=== PATIENT | male | born 1960 | race Caucasian/White ===

== ENCOUNTER 2016-09-29 10:24 | Emergency (ER) | payer MEDICARE, OTHER ==
[~2016-09-29] VITALS: Ht 185.4 cm; Wt 95.0 kg
[~2016-09-29 10:24] MED LIST: CLON1 PO; DOXE25CA2 PO; HYDR-3535 PO; PRIL40CA PO; SYMB160A INH
[2016-09-29 10:34] VITALS: BP 109/84; PULSE 125; RESP 16; TEMP 97.4; O2SAT 98
[2016-09-29] MEDS ORDERED: MICROFIBRILLAR COLLAGEN HEMOSTAT 70 X 35 MM BANDAGE TOPICAL ONE (11:15)
--- NOTE | 2016-09-29 11:16 | PD ---
HPI Chief Complaint: Oral / Dental Pain or Problem Time Seen by Provider: 10:55 Travel History International Travel<30 days: No Contact w/Intl Traveler<30days: No Traveled to known affect area: No History of Present Illness HPI 56yo M presents to the ED with c/o bleeding after he pulled out his wisdom tooth with a metal plier yesterday at 11pm. States it has not stopped bleeding. Denies any other complaints. Denies any anticoagulation. Denies any chest pain, sob, n/v, abdominal pain, weakness or numbness. PFSH Past Medical History Arthritis: Yes Asthma: Yes Anxiety: Yes Depression: Yes Cardiovascular Problems: Yes High Cholesterol: Yes Diabetes: No Diminished Hearing: No Endocrine: No GERD: Yes Hypertension: Yes Immune Disorder: No Implanted Vascular Access Dvce: No Musculoskeletal: Yes (LEFT TOES) Neurologic: Yes Psychiatric: Yes (ANXIETY) Respiratory: Yes (CHRONIC BRONCHITIS) Immunizations Current: No Seizures: No Past Surgical History Other Surgery: No Social History Alcohol Use: No (CHRONIC ALCOHOLIC) Tobacco Use: Yes ( SMOKED 1 PPD) Substance Use: Yes Allergies-Medications (Allergen,Severity, Reaction): Coded Allergies: Penicillin (Unverified Allergy, Unknown, ITCHING, 09/29/16) PT SAYS THAT HE IS NOT ALLERGIC TO THIS MED Reported Meds & Prescriptions Reported Meds & Active Scripts Active Active Prescriptions or Reported Medications Unobtainable Review of Systems Except as stated in HPI: all other systems reviewed are Neg Physical Exam Narrative GENERAL: 56yo M in moderate distress. SKIN: Warm and dry. HEAD: Atraumatic. Normocephalic. EYES: Pupils equal and round. No scleral icterus. No injection or drainage. ENT:Mouth: +Active bleeding from where tooth #1 was. Pt has partial tooth still there. Evacuated many large blood clots in mouth. NECK: Trachea midline. No JVD. CARDIOVASCULAR: Regular rate and rhythm. No murmur appreciated. RESPIRATORY: No accessory muscle use. Clear to auscultation. Breath sounds equal bilaterally. GASTROINTESTINAL: Abdomen soft, non-tender, nondistended. MUSCULOSKELETAL: No obvious deformities. No clubbing. No cyanosis. No edema. NEUROLOGICAL: Awake and alert. No obvious cranial nerve deficits. Motor grossly within normal limits. Normal speech. PSYCHIATRIC: Appropriate mood and affect; insight and judgment normal. Data Data Last Documented VS Vital Signs Date Time Temp Pulse Resp B/P Pulse Ox O2 Delivery O2 Flow Rate FiO2 09/29/16 16:17 108 18 116/68 98 Room Air 09/29/16 10:34 97.4 Orders Microfib Nickie Hemostat Bandage (Avitene (09/29/16 11:15) Complete Blood Count With Diff (09/29/16 11:16) Basic Metabolic Panel (Bmp) (09/29/16 11:16) Prothrombin Time / Inr (Pt) (09/29/16 11:16) Act Partial Throm Time (Ptt) (09/29/16 11:16) Type And Screen (09/29/16 11:16) Gelatin Powder Pack (Gelfoam Powder Pack (09/29/16 11:30) Lidocai-Epi 2%-1:100,000 Inj (Xylocaine- (09/29/16 12:15) Gelatin 12 Mm/7 Mm Top (Gelfoam 12 Mm/7 (09/29/16 12:45) Calcium Gluconate Inj (Calcium Gluconate (09/29/16 13:15) Sodium Chlor 0.9% 1000 Ml Inj (Ns 1000 M (09/29/16 13:45) Red Blood Cells (Rbc) (09/29/16 13:42) Sodium Chlor 0.9% 1000 Ml Inj (Ns 1000 M (09/29/16 14:15) Labs Laboratory Tests Test 09/29/16 09/29/16 09/29/16 11:37 13:49 14:00 White Blood Count 15.8 TH/MM3 Red Blood Count 4.38 MIL/MM3 Hemoglobin 12.6 GM/DL Hematocrit 36.5 % Mean Corpuscular Volume 83.3 FL Mean Corpuscular Hemoglobin 28.8 PG Mean Corpuscular Hemoglobin 34.5 % Concent Red Cell Distribution Width 12.8 % Platelet Count 155 TH/MM3 Mean Platelet Volume 8.6 FL Neutrophils (%) (Auto) 80.7 % Lymphocytes (%) (Auto) 10.5 % Monocytes (%) (Auto) 7.4 % Eosinophils (%) (Auto) 0.8 % Basophils (%) (Auto) 0.6 % Neutrophils # (Auto) 12.7 TH/MM3 Lymphocytes # (Auto) 1.7 TH/MM3 Monocytes # (Auto) 1.2 TH/MM3 Eosinophils # (Auto) 0.1 TH/MM3 Basophils # (Auto) 0.1 TH/MM3 CBC Comment DIFF FINAL Differential Comment Prothrombin Time 11.5 SEC Prothromb Time International 1.0 RATIO Ratio Activated Partial 25.9 SEC Thromboplast Time Sodium Level 141 MEQ/L Potassium Level 4.5 MEQ/L Chloride Level 109 MEQ/L Carbon Dioxide Level 23.1 MEQ/L Anion Gap 9 MEQ/L Blood Urea Nitrogen 21 MG/DL Creatinine 0.90 MG/DL Estimat Glomerular Filtration 87 ML/MIN Rate Random Glucose 118 MG/DL Calcium Level 7.7 MG/DL Blood Type A POSITIVE A POSITIVE Antibody Screen NEGATIVE Blood Bank Comment Crossmatch Leukocyte-Reduced Red Blood Cells MDM Medical Decision Making Medical Screen Exam Complete: Yes Emergency Medical Condition: Yes Interpretation(s) Laboratory Tests Test 09/29/16 09/29/16 09/29/16 11:37 13:49 14:00 White Blood Count 15.8 TH/MM3 (4.0-11.0) Red Blood Count 4.38 MIL/MM3 (4.50-5.90) Hemoglobin 12.6 GM/DL (13.0-17.0) Hematocrit 36.5 % (39.0-51.0) Mean Corpuscular Volume 83.3 FL (80.0-100.0) Mean Corpuscular Hemoglobin 28.8 PG (27.0-34.0) Mean Corpuscular Hemoglobin 34.5 % Concent (32.0-36.0) Red Cell Distribution Width 12.8 % (11.6-17.2) Platelet Count 155 TH/MM3 (150-450) Mean Platelet Volume 8.6 FL (7.0-11.0) Neutrophils (%) (Auto) 80.7 % (16.0-70.0) Lymphocytes (%) (Auto) 10.5 % (9.0-44.0) Monocytes (%) (Auto) 7.4 % (0.0-8.0) Eosinophils (%) (Auto) 0.8 % (0.0-4.0) Basophils (%) (Auto) 0.6 % (0.0-2.0) Neutrophils # (Auto) 12.7 TH/MM3 (1.8-7.7) Lymphocytes # (Auto) 1.7 TH/MM3 (1.0-4.8) Monocytes # (Auto) 1.2 TH/MM3 (0-0.9) Eosinophils # (Auto) 0.1 TH/MM3 (0-0.4) Basophils # (Auto) 0.1 TH/MM3 (0-0.2) CBC Comment DIFF FINAL Differential Comment Prothrombin Time 11.5 SEC (9.8-11.6) Prothromb Time International 1.0 RATIO Ratio Activated Partial 25.9 SEC Thromboplast Time (24.3-30.1) Sodium Level 141 MEQ/L (136-145) Potassium Level 4.5 MEQ/L (3.5-5.1) Chloride Level 109 MEQ/L (98-107) Carbon Dioxide Level 23.1 MEQ/L (21.0-32.0) Anion Gap 9 MEQ/L (5-15) Blood Urea Nitrogen 21 MG/DL (7-18) Creatinine 0.90 MG/DL (0.60-1.30) Estimat Glomerular Filtration 87 ML/MIN (>89) Rate Random Glucose 118 MG/DL (74-106) Calcium Level 7.7 MG/DL (8.5-10.1) Blood Type A POSITIVE A POSITIVE Antibody Screen NEGATIVE Blood Bank Comment Crossmatch Leukocyte-Reduced Red Blood Cells Differential Diagnosis Bleeding from tooth socket vs. bleeding from vessel vs. traumatic partial extraction of tooth Narrative Course 56yo M with bleeding from his partially extracted tooth #1. Hemostasis was finally achieved with lidocaine- 2% epinephrine injection and microfiber collagen with help from Dr. Sanabria. Labs reviewed, H/H 12.6/36.5. HR was initially 120s, but now is 99bpm after 1 liter of NS IVF. Discussed with opinion polls survey worker cranial facial surgeon Dr. Block and he advised that pt be immediately discharge to his clinic now. States he will see him when he gets here. Informed pt of this and that he needs to go there immediately. I was informed by nurse that after discharge, pt stood up to urinate and felt dizzy. Pt's BP sitting down was rechecked and it was 63/40. Pt states he felt dizzy when he stood up and is now diaphoretic. Another IV catheter was placed and another liter of NS IVF was given. Pt observed and reevaluated at bedside, bp is now 122/68 and pt feels better. Pt's sister is on her way to accompany him to the dental office. While waiting for pt's sister to arrive, we called Dr. Block's office and the nurse said they thought the pt was not coming so Dr. Block had left for the day. States he can come at 7:30am tomorrow. There was a miscommunication between the office and our staff. Pt has not had any more bleeding while waiting in the ED. Pt is feeling better and hemodynamically stable now. Pt wants to go home and can follow up with Dr. Block first thing in the morning. Pt instructed to come back to the ED immediately if he starts to bleed. Pt's sister has arrived and will accompany him home. They understand to return immediately if he has any symptoms. Strict return precautions given. Diagnosis Primary Impression: S/P tooth extraction Qualified Code: K08.409 - S/p tooth extraction, unspecified edentulism Referrals: Ronaldo Block DDS 1 day Please go straight to Dr. Block's office now. Patient Instructions: General Instructions Departure Forms: Tests/Procedures Additional Instructions: Please go to Dr. Block's office first thing in the morning at 7:30am tomorrow. Please return to the ED immediately if you have bleeding, dizziness, chest pain, sob, or any other concerning symptoms. Med/Other Pt SpecificInfo: No Change to Meds Scripts Unable to Obtain Active Prescriptions or Reported Meds Disposition: 01 DISCHARGE HOME Condition: Stable Christina Martinez Sep 29, 2016 11:16
[2016-09-29] MEDS ORDERED: GELATIN POWDER 1 GM PACKET TOPICAL ONE (11:30)
[2016-09-29 11:44] LABS: AUTOMATED NEUTROPHIL # 12.7 TH/MM3 (1.8-7.7); BASOPHIL # 0.1 TH/MM3 (0-0.2); BASOPHIL % 0.6 % (0.0-2.0); EOSINOPHIL # 0.1 TH/MM3 (0-0.4); EOSINOPHIL % 0.8 % (0.0-4.0); HEMATOCRIT 36.5 % (39.0-51.0); HEMO FLAGS DIFF FINAL; LYMPH % 10.5 % (9.0-44.0); LYMPHOCYTE # 1.7 TH/MM3 (1.0-4.8); MEAN CELL VOLUME 83.3 FL (80.0-100.0); MEAN CORPUSCULAR HEMOGLOBIN 28.8 PG (27.0-34.0); MEAN CORPUSCULAR HGB CONC 34.5 % (32.0-36.0); MONO % 7.4 % (0.0-8.0); NEUT % 80.7 % (16.0-70.0); PLATELET COUNT 155 TH/MM3 (150-450); RED BLOOD COUNT 4.38 MIL/MM3 (4.50-5.90); RED CELL DISTRIBUTION WIDTH 12.8 % (11.6-17.2); WHITE BLOOD COUNT 15.8 TH/MM3 (4.0-11.0)
[2016-09-29 11:52] LABS: POTASSIUM 4.5 MEQ/L (3.5-5.1)
[2016-09-29 11:54] LABS: BICARBONATE 23.1 MEQ/L (21.0-32.0)
[2016-09-29 11:56] LABS: APTT (PATIENT) 25.9 SEC (24.3-30.1); PROTHROMBIN TIME - PATIENT 11.5 SEC (9.8-11.6)
[2016-09-29] MEDS ORDERED: LIDOCAINE 2%/EPINEPHrine 1:100,000 30ML MDV INFIL ONE (12:15)
[2016-09-29] MEDS ORDERED: GELATIN 12 MM/7 MM FOAM TOPICAL ONE (12:45)
[2016-09-29] MEDS ORDERED: CALCIUM GLUCONATE INJ 1 GM in DEXTROSE 5% IN WATER 100ML INJ 100 ML IV ONE ×2 (13:15)
--- NOTE | 2016-09-29 13:29 | PD ---
Data Data Last Documented VS Vital Signs Date Time Temp Pulse Resp B/P Pulse Ox O2 Delivery O2 Flow Rate FiO2 09/29/16 10:34 97.4 125 16 109/84 98 Orders Microfib Nickie Hemostat Bandage (Avitene (09/29/16 11:15) Complete Blood Count With Diff (09/29/16 11:16) Basic Metabolic Panel (Bmp) (09/29/16 11:16) Prothrombin Time / Inr (Pt) (09/29/16 11:16) Act Partial Throm Time (Ptt) (09/29/16 11:16) Type And Screen (09/29/16 11:16) Gelatin Powder Pack (Gelfoam Powder Pack (09/29/16 11:30) Lidocai-Epi 2%-1:100,000 Inj (Xylocaine- (09/29/16 12:15) Gelatin 12 Mm/7 Mm Top (Gelfoam 12 Mm/7 (09/29/16 12:45) Calcium Gluconate Inj (Calcium Gluconate (09/29/16 13:15) Labs Laboratory Tests Test 09/29/16 11:37 White Blood Count 15.8 TH/MM3 Red Blood Count 4.38 MIL/MM3 Hemoglobin 12.6 GM/DL Hematocrit 36.5 % Mean Corpuscular Volume 83.3 FL Mean Corpuscular Hemoglobin 28.8 PG Mean Corpuscular Hemoglobin 34.5 % Concent Red Cell Distribution Width 12.8 % Platelet Count 155 TH/MM3 Mean Platelet Volume 8.6 FL Neutrophils (%) (Auto) 80.7 % Lymphocytes (%) (Auto) 10.5 % Monocytes (%) (Auto) 7.4 % Eosinophils (%) (Auto) 0.8 % Basophils (%) (Auto) 0.6 % Neutrophils # (Auto) 12.7 TH/MM3 Lymphocytes # (Auto) 1.7 TH/MM3 Monocytes # (Auto) 1.2 TH/MM3 Eosinophils # (Auto) 0.1 TH/MM3 Basophils # (Auto) 0.1 TH/MM3 CBC Comment DIFF FINAL Differential Comment Prothrombin Time 11.5 SEC Prothromb Time International 1.0 RATIO Ratio Activated Partial 25.9 SEC Thromboplast Time Sodium Level 141 MEQ/L Potassium Level 4.5 MEQ/L Chloride Level 109 MEQ/L Carbon Dioxide Level 23.1 MEQ/L Anion Gap 9 MEQ/L Blood Urea Nitrogen 21 MG/DL Creatinine 0.90 MG/DL Estimat Glomerular Filtration 87 ML/MIN Rate Random Glucose 118 MG/DL Calcium Level 7.7 MG/DL Blood Type A POSITIVE Blood Bank Comment MDM Supervised Visit with [facility]: No Procedures Procedure Narrative I assisted Dr. Martinez and hemostasis of this patient's partially extracted wisdom tooth. I injected 15 cc of 2% lidocaine with epi into the area of the extracted tooth and I applied a pledget soaked with lidocaine with epinephrine as well as Avitene. Patient had hemostatic control following procedure. Diagnosis Primary Impression: S/P tooth extraction Referrals: Ronaldo Block DDS 1 day Please go straight to Dr. Block's office now. Patient Instructions: General Instructions, Tooth Extraction (ED) Departure Forms: Tests/Procedures Additional Instruction: Please go straight to Dr. Block's office now. Scripts Unable to Obtain Active Prescriptions or Reported Meds Disposition: 01 DISCHARGE HOME Condition: Stable Rossy Sanabria MD Sep 29, 2016 13:29
[2016-09-29 13:30] VITALS: BP 63/40; PULSE 116; RESP 18; O2SAT 98
[2016-09-29] MEDS ORDERED: SODIUM CHLOR 0.9% 1000 ML INJ 1,000 ML IV ONE ×2 (13:45→14:15)
[2016-09-29 14:16] VITALS: BP 116/68; PULSE 98; RESP 18; O2SAT 98
[2016-09-29 14:47] VITALS: BP 122/68; PULSE 104; RESP 18; O2SAT 98
[2016-09-29 15:58] VITALS: BP 113/68; RESP 16
[2016-09-29 16:17] VITALS: BP 116/68; PULSE 108; RESP 18; O2SAT 98
== END 2016-09-29 16:22 | disposition home or self-care (01) ==
LOC: PHED 10:24
DX: K08.409 Partial loss of teeth, unspecified cause, unspecified class (principal); K06.8 Other specified disorders of gingiva and edentulous alveolar ridge; R42 Dizziness and giddiness; I95.9 Hypotension, unspecified; I10 Essential (primary) hypertension; E78.00 Pure hypercholesterolemia, unspecified; F17.200 Nicotine dependence, unspecified, uncomplicated; Z87.39 Personal history of other diseases of the musculoskeletal system and connective tissue; Z87.09 Personal history of other diseases of the respiratory system; Z86.59 Personal history of other mental and behavioral disorders; Z86.79 Personal history of other diseases of the circulatory system; Z87.19 Personal history of other diseases of the digestive system; Z86.69 Personal history of other diseases of the nervous system and sense organs
CPT/HCPCS: 80048; 85025; 85610; 85730; 86850; 86900; 86901; 86920; 96360; 96361; 99284; J7030

== ENCOUNTER 2017-12-22 17:17 | Inpatient (IN) | payer MEDICARE, OTHER ==
[~2017-12-22] VITALS: Ht 185.4 cm; Wt 111.8 kg
[2017-12-22 17:22] VITALS: BP 176/87; PULSE 121; RESP 18; TEMP 98.3; O2SAT 96
[2017-12-22 17:34] VITALS: BP 149/97
[2017-12-22 17:38] VITALS: O2SAT 96
--- NOTE | 2017-12-22 17:42 | PD ---
HPI Chief Complaint: Alcohol/Drug Intoxication Time Seen by Provider: 17:28 Travel History International Travel<30 days: No Contact w/Intl Traveler<30days: No Traveled to known affect area: No History of Present Illness HPI 57-year-old male complains of feeling shaky, generalized malaise and weakness. Patient states that he drinks alcohol daily. Last drink was this morning. Patient states that he is feeling dehydrated. Patient denies any headache. Patient denies any chest pain or shortness of breath. Patient denies abdominal pain. Patient states that he has nausea but no vomiting or diarrhea. Patient denies any focal weakness or numbness of the extremity. Patient denies any illicit drug abuse. Patient has history of hypertension and hyperlipidemia. Patient is a smoker. PFSH Past Medical History Arthritis: Yes Asthma: Yes Anxiety: Yes Depression: Yes Cardiovascular Problems: Yes High Cholesterol: Yes Diabetes: No Diminished Hearing: No Endocrine: No GERD: Yes Hypertension: Yes Immune Disorder: No Implanted Vascular Access Dvce: No Musculoskeletal: Yes (LEFT TOES) Neurologic: Yes Psychiatric: Yes (ANXIETY) Respiratory: Yes (CHRONIC BRONCHITIS) Immunizations Current: No Seizures: No Past Surgical History Other Surgery: No Social History Alcohol Use: No (CHRONIC ALCOHOLIC) Tobacco Use: Yes ( SMOKED 1 PPD) Substance Use: Yes Allergies-Medications (Allergen,Severity, Reaction): Coded Allergies: penicillin G (Unverified Allergy, Unknown, ITCHING, 12/22/17) PT SAYS THAT HE IS NOT ALLERGIC TO THIS MED Reported Meds & Prescriptions Reported Meds & Active Scripts Active Reported Doxepin (Doxepin HCl) 10 Mg Cap Unknown Dose PO DIRECTED Klonopin (Clonazepam) 0.5 Mg Tab Unknown Dose PO DIRECTED [Bp Meds] Hydrocodone-Acetaminophen 5-300 Mg Tab Unknown Dose DIRECTED PRN Review of Systems General / Constitutional: No: Fever Eyes: No: Visual changes HENT: No: Headaches Cardiovascular: No: Chest Pain or Discomfort Respiratory: No: Shortness of Breath Gastrointestinal: No: Abdominal Pain Genitourinary: No: Dysuria Musculoskeletal: No: Pain Skin: No Rash Neurologic: No: Weakness Psychiatric: No: Depression Endocrine: No: Polydipsia Hematologic/Lymphatic: No: Easy Bruising Physical Exam Narrative GENERAL: Well-nourished, well-developed patient. SKIN: Focused skin assessment warm/dry. HEAD: Normocephalic. EYES: No scleral icterus. No injection or drainage. NECK: Supple, trachea midline. No JVD or lymphadenopathy. CARDIOVASCULAR: Regular rate and rhythm without murmurs, gallops, or rubs. RESPIRATORY: Breath sounds equal bilaterally. No accessory muscle use. GASTROINTESTINAL: Abdomen soft, non-tender, nondistended. MUSCULOSKELETAL: No cyanosis, or edema. BACK: Nontender without obvious deformity. No CVA tenderness. Neurologic exam: Patient is awake alert oriented 3. No obvious focal neurological deficit. Data Data Last Documented VS Vital Signs Date Time Temp Pulse Resp B/P (MAP) Pulse Ox O2 Delivery O2 Flow Rate FiO2 12/22/17 17:38 96 Room Air 12/22/17 17:34 121 18 12/22/17 17:22 98.3 Orders Orders Electrocardiogram (12/22/17 17:35) Complete Blood Count With Diff (12/22/17 17:35) Comprehensive Metabolic Panel (12/22/17 17:35) Lipase (12/22/17 17:35) Chest, Single Ap (12/22/17 17:35) Iv Access Insert/Monitor (12/22/17 17:35) Ecg Monitoring (12/22/17 17:35) Oximetry (12/22/17 17:35) Alcohol (Ethanol) (12/22/17 17:35) Thiamine Inj (Thiamine Inj) (12/22/17 17:45) Sodium Chlor 0.9% 1000 Ml Inj (Ns 1000 M (12/22/17 17:45) Ondansetron Odt (Zofran Odt) (12/22/17 17:45) Sodium Chlor 0.9% 1000 Ml Inj (Ns 1000 M (12/22/17 19:00) Labs Laboratory Tests Test 12/22/17 17:40 White Blood Count 8.5 TH/MM3 Red Blood Count 5.54 MIL/MM3 Hemoglobin 16.5 GM/DL Hematocrit 48.5 % Mean Corpuscular Volume 87.5 FL Mean Corpuscular Hemoglobin 29.8 PG Mean Corpuscular Hemoglobin Concent 34.1 % Red Cell Distribution Width 14.4 % Platelet Count 165 TH/MM3 Mean Platelet Volume 9.2 FL CBC Comment AUTO DIFF Differential Total Cells Counted 100 Neutrophils % (Manual) 54 % Lymphocytes % 38 % Monocytes % 8 % Neutrophils # (Manual) 4.6 TH/MM3 Differential Comment FINAL DIFF MANUAL Platelet Estimate NORMAL Platelet Morphology Comment NORMAL Blood Urea Nitrogen 19 MG/DL Creatinine 0.81 MG/DL Random Glucose 121 MG/DL Total Protein 8.3 GM/DL Albumin 3.8 GM/DL Calcium Level 8.3 MG/DL Alkaline Phosphatase 132 U/L Aspartate Amino Transf (AST/SGOT) 209 U/L Alanine Aminotransferase (ALT/SGPT) 205 U/L Total Bilirubin 1.0 MG/DL Sodium Level 130 MEQ/L Potassium Level 3.9 MEQ/L Chloride Level 98 MEQ/L Carbon Dioxide Level 18.4 MEQ/L Anion Gap 14 MEQ/L Estimat Glomerular Filtration Rate 98 ML/MIN Lipase 199 U/L Ethyl Alcohol Level 153 MG/DL [facility] Medical Decision Making Medical Screen Exam Complete: Yes Emergency Medical Condition: Yes Interpretation(s) 1831 PM. CBC WBC 8.5. Hemoglobin 16.5 hematocrit 28.5. Normal differential. Sodium 130. Bicarb 18.4. BUN 19. AST 209. ALT 205. Alkaline phosphatase 132. Alcohol 153. Differential Diagnosis Differential diagnosis including alcohol intoxication, dehydration, electrolyte imbalance. Narrative Course 57-year-old male with history of alcohol abuse, feeling shaky, generally malaise and weakness. Normal saline solution 1 L IV bolus. Zofran 4 mg ODT. Thiamine 100 mg IV. Repeated normal saline solution 1 L IV bolus. Patient is tachycardic and shaky. CIWA protocol started. Diagnosis Primary Impression: Alcohol withdrawal Qualified Codes: F10.230 - Alcohol dependence with withdrawal, uncomplicated Additional Impression: Dehydration Patient Instructions: General Instructions Additional Instructions: Encourage p.o. fluid. Advised alcohol detox center. Follow-up with personal physician. Return if worse. Disposition: 01 DISCHARGE HOME Condition: Stable Bill Bergman MD December 22, 2017 17:41
[2017-12-22] MEDS ORDERED: THIAMINE INJ 100 MG in SODIUM CHLORIDE 0.9% INJ 100 ML IV ONE (17:45)
[2017-12-22] MEDS ORDERED: SODIUM CHLOR 0.9% 1000 ML INJ 1,000 ML IV ONE ×2 (17:45→19:00)
[2017-12-22] MEDS ORDERED: ONDANSETRON ODT 4 MG TAB PO ONE (17:45)
[2017-12-22] MEDS ORDERED: HYDR-4107 (17:49)
[2017-12-22] MEDS ORDERED: BP MEDS (17:49)
[2017-12-22] MEDS ORDERED: CLON.5 PO (17:49)
[2017-12-22] MEDS ORDERED: DOXE10CA PO (17:52)
[2017-12-22 17:55] LABS: HEMATOCRIT 48.5 % (39.0-51.0); HEMOGLOBIN 16.5 GM/DL (13.0-17.0); MEAN CELL VOLUME 87.5 FL (80.0-100.0); MEAN CORPUSCULAR HEMOGLOBIN 29.8 PG (27.0-34.0); MEAN CORPUSCULAR HGB CONC 34.1 % (32.0-36.0); MEAN PLATELET VOLUME 9.2 FL (7.0-11.0); PLATELET COUNT 165 TH/MM3 (150-450); RED BLOOD COUNT 5.54 MIL/MM3 (4.50-5.90); RED CELL DISTRIBUTION WIDTH 14.4 % (11.6-17.2); WHITE BLOOD COUNT 8.5 TH/MM3 (4.0-11.0)
[2017-12-22 17:56] LABS: CHLORIDE 98 MEQ/L (98-107); SODIUM (NA) 130 MEQ/L (136-145)
[2017-12-22 17:59] LABS: CALCIUM 8.3 MG/DL (8.5-10.1)
[2017-12-22 18:00] LABS: ALBUMIN 3.8 GM/DL (3.4-5.0); BICARBONATE 18.4 MEQ/L (21.0-32.0); BLOOD UREA NITROGEN 19 MG/DL (7-18); GLUCOSE,RANDOM 121 MG/DL (74-106)
[2017-12-22 18:03] LABS: ALT (GPT) 205 U/L (12-78); CREATININE 0.81 MG/DL (0.60-1.30); GLOMERULAR FILTRATION RATE 98 ML/MIN (>89)
[2017-12-22 18:04] LABS: TOTAL PROTEIN 8.3 GM/DL (6.4-8.2)
[2017-12-22 18:05] LABS: AST (GOT) 209 U/L (15-37)
[2017-12-22 18:06] LABS: ALKALINE PHOSPHATASE 132 U/L (45-117)
[2017-12-22 18:18] LABS: LYMPHOCYTES 38 % (9-44); MONOCYTES 8 % (0-8); NEUTROPHIL # MANUAL DIFF 4.6 TH/MM3 (1.8-7.7); POLYS (SEG NEUTROPHILS) 54 % (16-70)
--- NOTE | 2017-12-22 19:02 | RADRPT ---
EXAM DATE: 12/22/2017 6:43 PM EDT AGE/SEX: 57 years / Male INDICATIONS: Shortness of breath and weakness. CLINICAL DATA: This is the patient's initial encounter. Patient reports that signs and symptoms have been present for 1 day and indicates a pain score of 0/10. MEDICAL/SURGICAL HISTORY: Hypertension. None. COMPARISON: POI, XR CHEST PA AND LAT, 11/01/2017. . FINDINGS: A single AP view of the chest demonstrates the lungs to be symmetrically aerated without evidence of mass, infiltrate or effusion. The cardiomediastinal contours are unremarkable. Osseous structures a re intact. There are multiple overlying echocardiogram leads. CONCLUSION: No acute cardiopulmonary disease. Electronically signed by: Benjamin Gifford MD 12/22/2017 7:01 PM EDT
[2017-12-22 19:15] VITALS: BP 172/89; PULSE 116; RESP 20; O2SAT 97
[2017-12-22 21:15] VITALS: BP 185/92; PULSE 113; RESP 20; TEMP 99.5; O2SAT 97
[2017-12-22] MEDS ORDERED: LORazepam 2 MG TAB PO PRN (21:15)
[2017-12-22] MEDS ORDERED: LORazepam 1 MG TAB PO PRN (21:15)
[2017-12-22] MEDS ORDERED: LORazepam 2 MG/ML VIAL IV PUSH PRN ×2 (21:15)
[2017-12-22] MEDS ORDERED: FLUMAZENIL 0.5 MG/5 ML VIAL IV PUSH PRN (21:15)
[2017-12-22] MEDS ORDERED: FOLIC ACID 1 MG TAB PO ONE (21:30)
[2017-12-22] MEDS ORDERED: BISACODYL 10 MG SUPP RECTAL PRN (21:30)
[2017-12-22] MEDS ORDERED: NALOXONE HCL 0.4 MG/ML AMP IV PUSH PRN (21:30)
[2017-12-22] MEDS ORDERED: LACTULOSE SYRUP 20 GM/30 ML CUP PO PRN (21:30)
[2017-12-22] MEDS ORDERED: ACETAMINOPHEN 325 MG TAB PO PRN (21:30)
[2017-12-22] MEDS ORDERED: SODIUM CHLORIDE 0.9% FLUSH 10 ML FLUSH IV FLUSH PRN (21:30)
[2017-12-22] MEDS ORDERED: MAGNESIUM HYDROXIDE SUSP 30 ML CUP PO PRN (21:30)
[2017-12-22] MEDS ORDERED: SENNOSIDES 8.6 MG TAB PO PRN (21:30)
[2017-12-22] MEDS: SODIUM CHLOR 0.9% 1000 ML INJ 1,000 ML IV SCH (21:46)
[2017-12-22] MEDS: LORazepam 2 MG/ML VIAL IV PUSH PRN (21:49)
[2017-12-22] MEDS: ONDANSETRON ODT 4 MG TAB PO PRN (22:00)
[2017-12-22] MEDS: chlordiazePOXIDE 25 MG CAP PO SCH (22:04)
[2017-12-22 22:45] VITALS: BP 177/96; PULSE 116; RESP 20; O2SAT 97
[2017-12-22] MEDS ORDERED: cloNIDine HCL 0.2 MG TAB PO ONE (22:45)
[2017-12-23] VITALS (11 sets, daily range): BP systolic 140–166; BP diastolic 77–96; PULSE 86–112; RESP 17–25; TEMP 96.2–99.4; O2SAT 93–96
[2017-12-23] MEDS: ONDANSETRON ODT 4 MG TAB PO PRN (05:00)
[2017-12-23] MEDS: cloNIDine HCL 0.1 MG TAB PO PRN ×2 (05:00→13:07)
[2017-12-23] MEDS: SODIUM CHLOR 0.9% 1000 ML INJ 1,000 ML IV SCH ×2 (07:09→19:42)
[2017-12-23] MEDS ORDERED: cloNIDine HCL 0.1 MG TAB PO PRN (08:00)
[2017-12-23] MEDS ORDERED: hydrALAZINE HCL 20 MG/ML VIAL IV PUSH PRN (08:00)
[2017-12-23] MEDS: FOLIC ACID 1 MG TAB PO SCH (10:02)
[2017-12-23] MEDS: chlordiazePOXIDE 25 MG CAP PO SCH ×3 (10:02→19:09)
[2017-12-23] MEDS: SODIUM CHLORIDE 0.9% FLUSH 10 ML FLUSH IV FLUSH SCH ×2 (10:03→21:00)
[2017-12-23] MEDS: LORazepam 2 MG/ML VIAL IV PUSH PRN ×2 (10:06→21:49)
[2017-12-23] MEDS: THIAMINE INJ 100 MG in SODIUM CHLORIDE 0.9% INJ 100 ML IV SCH (13:30)
--- NOTE | 2017-12-23 13:41 | HHI.HP ---
[facility] Luis Ash, DO Admission Diagnosis Alcohol withdrawal. Dehydration. Diagnoses: (1) STEVO (acute kidney injury) (2) Alcohol withdrawal (3) Alcohol intoxication (4) Dehydration Chief Complaint: Alcohol withdrawal symptoms Travel History International Travel<30 Days: No Contact w/Intl Traveler <30 Da: No Traveled to Known Affected Are: No History of Present Illness 57-year-old male for past medical history of anxiety, depression, alcohol abuse presented to the ED for evaluation of any acute onset of generalized malaise, weakness and feeling of shaking. Drinks on average of over 1.5 L of rum per day. He reported drinking at least a week and half and then quitting for a few more days, however yesterday prior to arrival to the ED patient has had 3 beers. He denies any appetite December 21. Patient also reported episode of diarrhea however denies any nausea and vomiting. He had no palpitation. While in the ED patient was observed to go through symptoms of withdrawal. Initially admitted to [facility] however secondary to elevated CIWA score patient was transferred to ICU. During my exam, he was alert and oriented 3. Denies any GI bleed. Review of Systems Except as stated in HPI: all other systems reviewed are Neg Past Family Social History Past Medical History Arthritis: Yes Asthma: Yes Anxiety: Yes Depression: Yes Cardiovascular Problems: Yes High Cholesterol: Yes GERD: Yes Hypertension: Yes Musculoskeletal: Yes (LEFT TOES) Psychiatric: Yes (ANXIETY) Respiratory: Yes (CHRONIC BRONCHITIS) Past Surgical History No previous surgery Reported Medications Doxepin (Doxepin HCl) 10 Mg Cap Unknown Dose PO DIRECTED Klonopin (Clonazepam) 0.5 Mg Tab Unknown Dose PO DIRECTED [Bp Meds] Hydrocodone-Acetaminophen 5-300 Mg Tab Unknown Dose DIRECTED PRN Allergies: Coded Allergies: penicillin G (Unverified Allergy, Unknown, ITCHING, 12/22/17) PT SAYS THAT HE IS NOT ALLERGIC TO THIS MED Family History Myocardial infarction Social History Alcohol Use: No (CHRONIC ALCOHOLIC) Tobacco Use: Yes ( SMOKED 1 PPD) Substance Use: Yes Physical Exam Vital Signs Vital Signs Date Time Temp Pulse Resp B/P (MAP) Pulse Ox O2 Delivery O2 Flow Rate FiO2 12/23/17 08:16 98.0 100 23 140/86 (104) 94 12/23/17 04:10 97.1 102 20 143/92 (109) 95 12/23/17 00:00 105 12/23/17 00:00 96.2 110 20 163/96 (118) 96 12/22/17 23:48 22 12/22/17 23:00 12/22/17 22:45 116 20 177/96 (123) 97 Room Air 12/22/17 21:15 99.5 113 20 185/92 (123) 97 Room Air 12/22/17 19:20 116 18 96 Room Air 12/22/17 19:15 116 20 172/89 (116) 97 Room Air 12/22/17 17:38 96 Room Air 12/22/17 17:34 149/97 (114) 12/22/17 17:34 121 18 96 Room Air 12/22/17 17:22 98.3 121 18 176/87 (116) 96 Physical Exam GENERAL: This is a well-nourished, well-developed patient, in no apparent distress SKIN: No rashes, ecchymoses or lesions. Cool and dry. HEAD: Atraumatic. Normocephalic. No temporal or scalp tenderness. EYES: Pupils equal round and reactive. Extraocular motions intact. No scleral icterus. No injection or drainage. ENT: Nose without bleeding, purulent drainage or septal hematoma. Throat without erythema, tonsillar hypertrophy or exudate. Uvula midline. Airway patent. NECK: Trachea midline. No JVD or lymphadenopathy. Supple, nontender, no meningeal signs. CARDIOVASCULAR: Regular rate and rhythm without murmurs, gallops, or rubs. RESPIRATORY: Clear to auscultation. Breath sounds equal bilaterally. No wheezes , rales, or rhonchi. GASTROINTESTINAL: Abdomen soft, non-tender, nondistended. No hepato-splenomegaly , or palpable masses. No guarding. MUSCULOSKELETAL: Extremities without clubbing, cyanosis, or edema. No joint tenderness, effusion, or edema noted. No calf tenderness. Negative Homans sign bilaterally. Bilateral hand tremors noted NEUROLOGICAL: Awake and alert. Cranial nerves II through XII intact. Motor and sensory grossly within normal limits. Five out of 5 muscle strength in all muscle groups. Normal speech. Laboratory Laboratory Tests Test 12/22/17 17:40 12/23/17 08:22 White Blood Count 8.5 Red Blood Count 5.54 Hemoglobin 16.5 Hematocrit 48.5 Mean Corpuscular Volume 87.5 Mean Corpuscular Hemoglobin 29.8 Mean Corpuscular Hemoglobin Concent 34.1 Red Cell Distribution Width 14.4 Platelet Count 165 Mean Platelet Volume 9.2 CBC Comment AUTO DIFF Differential Total Cells Counted 100 Neutrophils % (Manual) 54 Lymphocytes % 38 Monocytes % 8 Neutrophils # (Manual) 4.6 Differential Comment FINAL DIFF MANUAL Platelet Estimate NORMAL Platelet Morphology Comment NORMAL Blood Urea Nitrogen 19 Creatinine 0.81 Random Glucose 121 Total Protein 8.3 Albumin 3.8 Calcium Level 8.3 Alkaline Phosphatase 132 Aspartate Amino Transf (AST/SGOT) 209 Alanine Aminotransferase (ALT/SGPT) 205 Total Bilirubin 1.0 Sodium Level 130 Potassium Level 3.9 Chloride Level 98 Carbon Dioxide Level 18.4 Anion Gap 14 Estimat Glomerular Filtration Rate 98 Lipase 199 Ethyl Alcohol Level 153 Hepatitis A IgM Antibody NONREACTIVE Hepatitis B Surface Antigen NONREACTIVE Hepatitis B Core IgM Antibody NONREACTIVE Hepatitis C IgG Antibody NONREACTIVE Result Diagram: 12/22/17 1740 12/22/17 1740 Imaging Last Impressions Chest X-Ray 12/22/17 1735 Signed Impressions: CONCLUSION: No acute cardiopulmonary disease. Septic Shock Reassessment Septic shock perfusion: reassessment completed Caprini VTE Risk Assessment Caprini VTE Risk Assessment: No/Low Risk (score <= 1) Caprini Risk Assessment Model Point Value = 1 Point Value = 2 Point Value = 3 Point Value = 5 Age 41-60 Minor surgery BMI > 25 kg/m2 Swollen legs Varicose veins or History of unexplained or recurrent spontaneous Oral contraceptives or hormone replacement Sepsis (< 1 month) Serious lung disease, including pneumonia (< 1 month) Abnormal pulmonary function Acute myocardial infarction Congestive heart failure (< 1 month) History of inflammatory bowel disease Medical patient at bed rest Age 61-74 Arthroscopic surgery Major open surgery (> 45 min) Laparoscopic surgery (> 45 min) Malignancy Confined to bed (> 72 hours) Immobilizing plaster cast Central venous access Age >= 75 History of VTE Family history of VTE Factor V Leiden Prothrombin [id number] Lupus anticoagulant Anticardiolipin antibodies Elevated serum homocysteine Heparin-induced thrombocytopenia Other congenital or acquired thrombophilia Stroke (< 1 month) Elective arthroplasty Hip, pelvis, or leg fracture Acute spinal cord injury (< 1 month) Prophylaxis Regimen Total Risk Factor Score Risk Level Prophylaxis Regimen 0-1 Low Early ambulation 2 Moderate Order ONE of the following: *Sequential Compression Device (SCD) *Heparin 5000 units SQ BID 3-4 Higher Order ONE of the following medications: *Heparin 5000 units SQ TID *Enoxaparin/Lovenox 40 mg SQ daily (WT < 150 kg, CrCl > 30 mL/min) *Enoxaparin/Lovenox 30 mg SQ daily (WT < 150 kg, CrCl > 10-29 mL/min) *Enoxaparin/Lovenox 30 mg SQ BID (WT < 150 kg, CrCl > 30 mL/min) AND/OR *Sequential Compression Device (SCD) 5 or more Highest Order ONE of the following medications: *Heparin 5000 units SQ TID (Preferred with Epidurals) *Enoxaparin/Lovenox 40 mg SQ daily (WT < 150 kg, CrCl > 30 mL/min) *Enoxaparin/Lovenox 30 mg SQ daily (WT < 150 kg, CrCl > 10-29 mL/min) *Enoxaparin/Lovenox 30 mg SQ BID (WT < 150 kg, CrCl > 30 mL/min) AND *Sequential Compression Device (SCD) Assessment and Plan Problem List: (1) Alcohol intoxication ICD Code: F10.929 - Alcohol use, unspecified with intoxication, unspecified Status: Acute (2) Alcohol withdrawal ICD Code: F10.239 - Alcohol dependence with withdrawal, unspecified Status: Acute Assessment and Plan 57-year-old man with Alcohol intoxication Alcohol withdrawal Delirium tremens Alcohol counseling cessation provided Continue CIWA protocol, rally pack, Librium protocol 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 In the case of services not specified as inpatient-only, they are appropriately provided as inpatient services in accordance with the 2-midnight benchmark. days is the estimated time the patient will need to remain in the hospital, assuming treatment plan goals are met and no additional complications. Problem Qualifiers (1) Alcohol withdrawal: Qualified Codes: F10.230 - Alcohol dependence with withdrawal, uncomplicated (2) Alcohol intoxication: Qualified Codes: F10.920 - Alcohol use, unspecified with intoxication, uncomplicated Jered Ceballos MD December 23, 2017 13:40
[2017-12-23] MEDS ORDERED: RESP: ALBUTEROL 2.5 MG/IPRATROPIUM 0.5 MG NEB (PRN) NEB (13:45)
--- NOTE | 2017-12-23 19:38 | EKG ---
Date Performed: 12/22/2017 Time Performed: 17:51:59 PTAGE: 57 years EKG: SINUS TACHYCARDIA NONSPECIFIC T-WAVE ABNORMALITY ABNORMAL RHYTHM ECG Compared to PREVIOUS TRACING , the patient is now tachycardic. PREVIOUS TRACIN12/22/2013 05.39 DOCTOR: Yenny Fairbanks Interpretating Date/Time 12/23/2017 19:37:34
[2017-12-24] VITALS (10 sets, daily range): BP systolic 127–153; BP diastolic 76–93; PULSE 78–96; RESP 15–24; TEMP 98.2–99.3; O2SAT 93–95
[2017-12-24] MEDS: SODIUM CHLOR 0.9% 1000 ML INJ 1,000 ML IV SCH (03:25)
[2017-12-24] MEDS: ONDANSETRON ODT 4 MG TAB PO PRN (03:27)
[2017-12-24] MEDS: LORazepam 2 MG/ML VIAL IV PUSH PRN (03:28)
[2017-12-24 06:04] LABS: AUTOMATED NEUTROPHIL # 2.5 TH/MM3 (1.8-7.7); BASOPHIL % 0.6 % (0.0-2.0); EOSINOPHIL # 0.1 TH/MM3 (0-0.4); EOSINOPHIL % 1.8 % (0.0-4.0); HEMATOCRIT 38.4 % (39.0-51.0); HEMOGLOBIN 13.2 GM/DL (13.0-17.0); LYMPH % 24.9 % (9.0-44.0); MEAN CELL VOLUME 87.5 FL (80.0-100.0); MEAN CORPUSCULAR HGB CONC 34.3 % (32.0-36.0); MEAN PLATELET VOLUME 9.3 FL (7.0-11.0); MONO % 10.1 % (0.0-8.0); MONOCYTE # 0.4 TH/MM3 (0-0.9); NEUT % 62.6 % (16.0-70.0); PLATELET COUNT 53 TH/MM3 (150-450); RED CELL DISTRIBUTION WIDTH 14.4 % (11.6-17.2)
[2017-12-24 07:11] LABS: ALBUMIN 3.1 GM/DL (3.4-5.0); ALKALINE PHOSPHATASE 122 U/L (45-117); ALT (GPT) 139 U/L (12-78); AST (GOT) 158 U/L (15-37); BICARBONATE 23.5 MEQ/L (21.0-32.0); BLOOD UREA NITROGEN 14 MG/DL (7-18); CHLORIDE 107 MEQ/L (98-107); CREATININE 0.86 MG/DL (0.60-1.30); GLOMERULAR FILTRATION RATE 92 ML/MIN (>89); GLUCOSE,RANDOM 108 MG/DL (74-106); SODIUM (NA) 138 MEQ/L (136-145); TOTAL BILIRUBIN ADULT 1.2 MG/DL (0.2-1.0); TOTAL PROTEIN 6.6 GM/DL (6.4-8.2)
[2017-12-24] MEDS: SODIUM CHLORIDE 0.9% FLUSH 10 ML FLUSH IV FLUSH SCH (08:13)
[2017-12-24] MEDS: chlordiazePOXIDE 25 MG CAP PO SCH (08:14)
[2017-12-24] MEDS: FOLIC ACID 1 MG TAB PO SCH (08:14)
[2017-12-24] MEDS ORDERED: PANTOPRAZOLE SOD 40 MG DELAYED RELEASE TAB PO SCH (09:00)
[2017-12-24] MEDS: THIAMINE INJ 100 MG in SODIUM CHLORIDE 0.9% INJ 100 ML IV SCH (09:05)
--- NOTE | 2017-12-24 09:56 | HHI.PR ---
Subjective Remarks Follow-up alcohol intoxication and withdrawal December 24, 2017-patient seen and examined, alert and oriented 3, normal tremor on exam. No acute event overnight. Stated he is ready for discharge home. Objective Vitals Vital Signs Date Time Temp Pulse Resp B/P (MAP) Pulse Ox O2 Delivery O2 Flow Rate FiO2 12/24/17 09:00 96 12/24/17 07:32 98.2 129/85 (100) 12/24/17 07:16 86 12/24/17 07:16 86 21 129/85 (100) 95 12/24/17 06:00 90 12/24/17 06:00 78 17 127/87 (100) 94 12/24/17 04:00 98.6 86 22 150/81 (104) 95 12/24/17 04:00 82 12/24/17 03:00 84 15 153/93 (113) 94 12/24/17 02:00 82 24 135/76 (95) 93 12/24/17 02:00 80 12/24/17 01:00 82 16 148/91 (110) 94 12/24/17 00:17 84 12/24/17 00:00 99.3 80 19 140/89 (106) 93 12/23/17 23:00 86 17 145/80 (101) 95 12/23/17 22:00 92 20 152/86 (108) 94 12/23/17 22:00 90 12/23/17 21:51 94 19 155/78 (103) 95 12/23/17 20:00 92 12/23/17 20:00 99.4 96 18 152/88 (109) 94 12/23/17 16:00 100 12/23/17 14:00 98.8 98 20 166/84 (111) 93 12/23/17 12:00 112 12/23/17 12:00 97.6 110 25 162/91 (114) 12/23/17 10:00 98 12/23/17 10:00 98 18 161/77 (105) 95 I/O 12/23/17 12/23/17 12/23/17 12/24/17 12/24/17 12/24/17 07:00 15:00 23:00 07:00 15:00 23:00 Intake Total 999 ml 600 ml Output Total 800 ml 900 ml Balance -800 ml 999 ml -900 ml 600 ml Intake Oral 600 ml IV Total 999 ml Output Urine Total 800 ml 900 ml # Bowel Movements 1 Result Diagram: 12/24/17 0537 12/24/17 0537 Imaging Last Impressions Chest X-Ray 12/22/17 1962 Signed Impressions: CONCLUSION: No acute cardiopulmonary disease. Objective Remarks GENERAL: NAD SKIN: Warm and dry. HEAD: Normocephalic. EYES: No scleral icterus. No injection or drainage. NECK: Supple, trachea midline. No JVD or lymphadenopathy. CARDIOVASCULAR: Regular rate and rhythm without murmurs, gallops, or rubs. RESPIRATORY: Breath sounds equal bilaterally. No accessory muscle use. GASTROINTESTINAL: Abdomen soft, non-tender, nondistended. MUSCULOSKELETAL: No cyanosis, or edema. BACK: Nontender without obvious deformity. No CVA tenderness. A/P Problem List: (1) STEVO (acute kidney injury) ICD Code: N17.9 - Acute kidney failure, unspecified Status: Resolved (2) Alcohol withdrawal ICD Code: F10.239 - Alcohol dependence with withdrawal, unspecified Status: Resolved (3) Alcohol intoxication ICD Code: F10.929 - Alcohol use, unspecified with intoxication, unspecified Status: Resolved (4) Dehydration ICD Code: E86.0 - Dehydration Status: Resolved Assessment and Plan 57-year-old man with Alcohol intoxication-resolved Alcohol withdrawal-resolved Delirium tremens-resolved Alcohol counseling cessation provided Improved with CIWA protocol, rally pack, Librium protocol 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, 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
== END 2017-12-24 11:40 | disposition home or self-care (01) | DRG 897 ==
LOC: PHED 17:17 → PHEDA 21:27 → PH3B 23:06 → PHICU 12-23 08:14
PROVIDERS: ADMIT Hospitalist; ATTEND Hospitalist
DX: F10.231 Alcohol dependence with withdrawal delirium (principal); N17.9 Acute kidney failure, unspecified; Y90.6 Blood alcohol level of 120-199 mg/100 ml; E86.0 Dehydration; F41.9 Anxiety disorder, unspecified; F32.9 Major depressive disorder, single episode, unspecified; I10 Essential (primary) hypertension; K21.9 Gastro-esophageal reflux disease without esophagitis; F17.210 Nicotine dependence, cigarettes, uncomplicated; E78.5 Hyperlipidemia, unspecified
CPT/HCPCS: 71045; 80053; 80074; 80307; 83690; 85007; 85025; 85027; 93005; 96361; 96365; J2060; J3411; J7030

== ENCOUNTER 2018-03-13 16:32 | Observation (INO) ==
[2018-03-13] MEDS ORDERED: Sod Chloride 0.9% Inj 1,000 ML IV.SIG ONE (17:42)
[2018-03-13 18:03] LABS: Baso # (Auto) 0.1 th/mm3 (0.0-0.2); Baso % (Auto) 1.1 % (0.0-2.0); Eos # (Auto) 0.1 th/mm3 (0.0-0.4); Eos % (Auto) 0.9 % (0.0-4.0); Hematocrit 45.9 % (39.0-51.0); Hemoglobin 15.3 gm/dL (13.0-17.0); Lymph # (Auto) 1.7 th/mm3 (1.0-4.8); Lymph % (Auto) 23.3 % (9.0-44.0); Mean Corpuscular HGB Conc 33.3 % (32.0-36.0); Mean Corpuscular Hemoglobin 29.6 pg (27.0-34.0); Mean Corpuscular Volume 88.9 fL (80.0-100.0); Mean Platelet Volume 9.2 fL (7.0-11.0); Mono # (Auto) 0.6 th/mm3 (0.0-0.9); Neut # (Auto) 4.6 th/mm3 (1.8-7.7); Neut % (Auto) 66.7 % (16.0-70.0); Platelet Count 149 th/mm3 (150-450); Red Blood Count 5.16 mil/mm3 (4.50-5.90); Red Cell Distribution Width 13.2 % (11.6-17.2); White Blood Count 7.1 th/mm3 (4.0-11.0)
[2018-03-13 18:13] LABS: Chloride 101 meq/L (98-107); Potassium 3.7 meq/L (3.5-5.1); Sodium 137 meq/L (136-145)
--- NOTE | 2018-03-13 18:14 | ED ---
HPI General Chief complaint: Weakness Stated complaint: weakness/alcohol withdrawl Time Seen by Provider: 03/13/18 17:37 History of Present Illness HPI narrative: pt is 58yo M here for generalized weakness and feeling of shaking. He reports drinking " too much rum" last night. He says he is not feeling himself this morning and decided to come to the ER. denies any abdominal pain, no fever or chills, no cough. Pt reports shaking on his arms that he can't stop. he was here for ETOH withdrawal on 11/2017. Related Data Home Medications Medication Instructions Recorded Confirmed No Known Home Medications 03/13/18 03/13/18 Allergies Allergy/AdvReac Type Severity Reaction Status Date / Time penicillin G Allergy Severe ITCHING Verified 03/13/18 16:47 Review of Systems ROS: all other systems reviewed are negative [facility] Medical History Medical History Asthma (Acute) GERD (gastroesophageal reflux disease) (Acute) HTN (hypertension) (Acute) Substance abuse (Acute) Social History Social History Substance History: Active Abuse Smoking Status: Current some day smoker Tobacco Type: Cigarettes How Often Do You Have a Drink Containing Alcohol: 4 or more times a week Recent Travel in [facility] within the Last 8 Weeks: No Recent Out of Country Travel within the Last 8 Weeks: No Substance Abuse Detail Alcohol: Substance Use Status: Active Route Used Substance Abuse: By Mouth Immunization History Tetanus Immunization: >5 Years Hx Influenza Vaccine This Season: No Exam Narrative Exam Narrative: GENERAL: Alert 3 no acute distress. SKIN: Focused skin assessment warm/dry. HEAD: Atraumatic. Normocephalic. EYES: Pupils equal and round. No scleral icterus. No injection or drainage. ENT: No nasal bleeding or discharge. Mucous membranes pink and moist. NECK: Trachea midline. No JVD. CARDIOVASCULAR: Regular rate and rhythm. No murmur appreciated. RESPIRATORY: No accessory muscle use. Clear to auscultation. Breath sounds equal bilaterally. GASTROINTESTINAL: Abdomen soft, non-tender, nondistended. Hepatic and splenic margins not palpable. MUSCULOSKELETAL: No obvious deformities. No clubbing. No cyanosis. No edema. NEUROLOGICAL: Awake and alert. No obvious cranial nerve deficits. Motor grossly within normal limits. Normal speech. PSYCHIATRIC: Appropriate mood and affect; insight and judgment normal. Course Initial Documented Vital Signs Temperature 99.8 F H 03/13/18 16:47 Pulse Rate 100 H 03/13/18 16:47 Respiratory Rate 16 03/13/18 16:47 Blood Pressure 150/97 H 03/13/18 16:47 Pulse Oximetry 96 03/13/18 16:47 Last Documented Vital Signs Temperature 99.8 F H 03/13/18 16:47 Pulse Rate 100 H 03/13/18 18:10 Respiratory Rate 22 03/13/18 18:10 Blood Pressure 139/97 H 03/13/18 18:10 Pulse Oximetry 95 03/13/18 18:10 Medical Decision Making MDM Narrative Medical decision making narrative: 58-year-old male here for evaluation of generalized weakness malaise, he had heavy drinking last night, he is showing good symptoms of withdrawal including shaking in his arms and legs. Patient received 1 bag of IV fluids and Ativan. Patient will benefit from admission for 23 hour observation for DTs and withdrawal symptoms. Lab Data Result diagrams: 03/13/18 17:50 03/13/18 17:50 Lab Results 03/13/18 03/13/18 03/13/18 Range/Units 17:50 17:50 19:30 CBC w Diff Auto diff final WBC 7.1 (4.0-11.0) th/mm3 RBC 5.16 (4.50-5.90) mil/mm3 Hgb 15.3 (13.0-17.0) gm/dL Hct 45.9 (39.0-51.0) % MCV 88.9 (80.0-100.0) fL MCH 29.6 (27.0-34.0) pg MCHC 33.3 (32.0-36.0) % RDW 13.2 (11.6-17.2) % Plt Count 149 L (150-450) th/mm3 MPV 9.2 (7.0-11.0) fL Neut % (Auto) 66.7 (16.0-70.0) % Lymph % (Auto) 23.3 (9.0-44.0) % [place] % (Auto) 8.0 (0.0-8.0) % Eos % (Auto) 0.9 (0.0-4.0) % Baso % (Auto) 1.1 (0.0-2.0) % Neut # (Auto) 4.6 (1.8-7.7) th/mm3 Lymph # (Auto) 1.7 (1.0-4.8) th/mm3 [place] # (Auto) 0.6 (0.0-0.9) th/mm3 Eos # (Auto) 0.1 (0.0-0.4) th/mm3 Baso # (Auto) 0.1 (0.0-0.2) th/mm3 WBC Differential . Differential Comment . Sodium 137 (136-145) meq/L Potassium 3.7 (3.5-5.1) meq/L Chloride 101 (98-107) meq/L Carbon Dioxide 23.7 (21.0-32.0) meq/L Anion Gap 12 (5-15) meq/L BUN 10 (7-18) mg/dL Creatinine 0.74 (0.60-1.30) mg/dL Estimated GFR Greater than 89 (>89) mL/min Random Glucose 99 (74-106) mg/dL Calcium 8.6 (8.5-10.1) mg/dL Total Bilirubin 0.4 (0.2-1.0) mg/dL AST 84 H (15-37) U/L ALT 112 H (12-78) U/L Alkaline Phosphatase 115 (45-117) U/L Total Creatine Kinase 205 (39-308) U/L CK-MB (CK-2) 2.2 (0.5-3.6) ng/mL Troponin I Less than 0.02 L (0.02-0.05) ng/mL Total Protein 7.5 (6.4-8.2) g/dL Albumin 3.4 (3.4-5.0) g/dL Lipase 184 (73-393) U/L Urine Color Yellow (Yellw/Straw) Urine Clarity Clear (Clear) Urine pH 7.0 (5.0-8.5) Ur Specific [place] 1.015 (1.002-1.035) Urine Protein Trace (Neg-Trace) mg/dL Urine Glucose (UA) Negative (Negative) mg/dL Urine Ketones Trace (Negative) mg/dL Urine Occult Blood Negative (Negative) Urine Nitrate Negative (Negative) Urine Bilirubin Negative (Negative) Urine Urobilinogen 0.2 (Less than 2) mg/dL Ur Leukocyte Esterase Negative (Negative) Urine WBC 0-5 (0-5) /hpf Micro UA Comment Culture not ind Urine Culture Comments Culture not ind Serum Alcohol 43 H (0-5) mg/dL Discharge Plan Discharge Disposition Patient Disposition: 30 Still Patient Discharge Condition Condition: Stable Discharge Details Diagnosis: Dehydration, Alcohol withdrawal Physicians Team ED Provider: Iriwn Bush Primary Care Provider: UNKNOWN, Rxs /Orders / Referrals /Forms Prescriptions: No Action No Known Home Medications RF: 0 Discharge Interventions Interventions: Vital Signs Last Done: 03/13/18 18:10 Status ED Status: Pending Admission
[2018-03-13 18:17] LABS: Albumin 3.4 g/dL (3.4-5.0); Anion Gap 12 meq/L (5-15); Calcium 8.6 mg/dL (8.5-10.1); Carbon Dioxide 23.7 meq/L (21.0-32.0); Glucose,Random 99 mg/dL (74-106); Lipase 184 U/L (73-393)
[2018-03-13 18:18] LABS: Blood Urea Nitrogen 10 mg/dL (7-18)
[2018-03-13 18:20] LABS: Alanine Aminotransferase 112 U/L (12-78); Aspartate Aminotransferase 84 U/L (15-37); Glomerular Filtration Rate Greater Than 89 mL/min (>89)
[2018-03-13 18:21] LABS: Alcohol 43 mg/dL (0-5)
[2018-03-13 18:22] LABS: Total Protein 7.5 g/dL (6.4-8.2)
[2018-03-13 18:23] LABS: Alkaline Phosphatase 115 U/L (45-117); Creatine Kinase 205 U/L (39-308)
[2018-03-13 18:35] LABS: Creatine Kinase MB 2.2 ng/mL (0.5-3.6)
[2018-03-13 19:40] LABS: Bilirubin,Urine Negative (Negative); Clarity,Urine Clear (Clear); Color,Urine Yellow (Yellw/Straw); Glucose,Urine (UA) Negative (Negative); Leukocyte Esterase,Urine Negative (Negative); Nitrite,Urine Negative (Negative); Specific Gravity,Urine 1.015 (1.002-1.035); Urobilinogen,Urine 0.2 mg/dL (Less than 2)
[2018-03-13 19:44] LABS: WBC,Urine 0-5 /hpf (0-5)
[2018-03-13] MEDS ORDERED: Haloperidol Inj 5 MG/ML Ampul IV.PUSH PRN ×2 (20:01→20:23)
[2018-03-13 21:09] VITALS: RESP 20
[2018-03-13] MEDS: LORazepam 1 MG Tablet PO PRN (21:22)
[2018-03-14] MEDS: LORazepam 1 MG Tablet PO PRN ×3 (01:06→11:23)
[2018-03-14 07:21] VITALS: O2SAT 95
[2018-03-14] MEDS ORDERED: Folic Acid 1 MG Tablet PO SCH (09:00)
[2018-03-14] MEDS ORDERED: Multivitamin/Minerals Therapeutic Tablet PO SCH (09:00)
[2018-03-14 11:13] VITALS: BP 155/98; PULSE 81; TEMP 98.4
--- NOTE | 2018-03-14 14:03 | P.HP ---
History of Present Illness Primary Care Physician: UNKNOWN History of Present Illness: This is a 58-year-old male who presented to the ER overnight with generalized weakness and shakiness. He admits to having a history of alcoholism but had quit alcohol completely for 3 weeks prior to last . Since last he has been drinking excessively with rum or beer depending on the day. He was told in the emergency room that he was dehydrated, he was placed on [place] protocol and rehydration IV fluids. Today he states that he feels great, all of his weakness and shaking has stopped overnight.. He was admitted last November for alcohol withdrawal. We had a lengthy discussion about physical versus emotional addiction. He understands that Librium can help with physical signs of withdrawal but that Librium cannot be taken with alcohol. She understands that quitting alone is a recipe for failure and that joining a group such as Alcoholics Anonymous provide support that can help him free himself from his addiction. He seems motivated to quit drinking alcohol. Review of Systems Constitutional: Admitted with weakness and shakiness. Denies chills, Denies fevers, Denies daytime sleepiness,Denies fatigue, Denies headache, Denies malaise, Denies night sweats, Denies anorexia, Denies increased appetite Denies weight gain, Denies weight loss Eyes: Denies visual changes, Denies visual loss, Denies double vision, Denies blind spots, Denies blurry vision, Denies discharge, Denies dry eyes, Denies floaters, Denies irritation, Denies itchy eyes, Denies pain, Denies photophobia , Denies bulging eyes Ears, Nose, Mouth, and Throat: Denies bleeding gums, Denies change in voice, Denies difficulty swallowing, Denies abnormal hearing, Denies ear discharge, Denies ear pain, Denies tinitus, Denies vertigo, Denies facial pain, Denies hoarseness, Denies lip swelling, Denies mouth lesions, Denies nasal congestion, Denies nasal discharge, Denies nasal obstruction, Denies neck lump, Denies neck pain, Denies nose pain, Denies nosebleed, Denies post nasal drip, Denies sinus pain, Denies sinus pressure, Denies sore throat, Denies throat swelling, Denies tongue swelling Cardiovascular: Denies chest pain, Denies fainting, Denies fast heart rate, Denies foot swelling, Denies generalized swelling, Denies irregular heart rhythm , Denies leg sores, Denies leg swelling, Denies shortness of breath when lying down, Denies shortness of breath causing sudden awakening, Denies slow heart rate Respiratory: Denies change in phlegm color, Denies chest congestion, Denies cough, Denies coughing up blood, Denies excessive phlegm production, Denies pain on inspiration, Denies pain with cough, Denies shortness of breath, Denies shortness of breath with activity, Denies snoring, Denies stridor, Denies wheezing, Denies other Gastrointestinal: Denies abdominal pain, Denies bleeding, Denies stool color changes, Denies bloating, Denies change in bowel habits, Denies coffee ground vomit, Denies constipation, Denies feeling full early, Denies heartburn, Denies loose stools, Denies nausea, Denies vomiting, Denies pain with swallowing Skin/Breast: Denies bleeding lesions, Denies boil, Denies change in skin color, Denies changing lesions, Denies itching, Denies redness, Denies rash,Denies skin ulcer, Denies sores, Neurologic: Denies abnormal speech, Denies abnormal walking, Denies dizziness, Denies fainting, Denies frequent falls, Denies lack of coordination, Denies localized weakness, Denies loss of vision, Denies memory loss, Denies numbness, Denies convulsions, Denies tingling/numbness/burning sensations, Denies tremor Psychiatric: Patient admits to alcohol addiction. Denies anxiety, Denies behavioral changes, Denies depression, Denies memory loss, Denies hallucinations , Denies thoughts of hurting/killing others, Denies thoughts of hurting/killing self Endocrine: Denies cold intolerance, Denies excessive sweating, Denies flushing, Denies heat intolerance, Denies increased thirst, Denies weight gain or loss Hematologic/Lymphatic: Denies easy bleeding, Denies easy bruising, Denies enlarged lymph node Allergic/Immunologic: Denies GI upset with certain foods, Denies hives, Denies seasonal runny nose PMFSH - History History Provided By: Patient - Medical History Medical History: Medical History (Last Reviewed 03/14/18 @ 01:42 by Channing Carlton RN) Asthma GERD (gastroesophageal reflux disease) HTN (hypertension) Substance abuse - Family History Family History: Family History (Last Updated 03/14/18 @ 13:58 by Nikolas Randolph MD) Other Alcoholism - Tobacco History Second Hand Smoke Exposure: Yes Tobacco Use In Past 30 Days: Yes Smoking Status: Current some day smoker Tobacco Type: Cigarettes - Alcohol History How Often Do You Have a Drink Containing Alcohol: 4 or more times a week - Substance Use History Substance History: No History of Abuse - Substance Use Type Alcohol Status: Active Route Used: By Mouth - Travel History Recent Travel in the [place] Within the Last 8 Weeks: No Recent Travel Out of the Country Within the Last 8 Weeks: No - Immunization History Tetanus Immunization: Unsure Hx Influenza Vaccine This Season: No Medications and Allergies Allergies Allergy/AdvReac Type Severity Reaction Status Date / Time penicillin G Allergy Severe ITCHING Verified 03/13/18 16:47 Home Medications Medication Instructions Recorded Confirmed Type No Known Home Medications 03/13/18 03/13/18 History Exam Vital signs: Vital Signs 03/13/18 16:47 03/13/18 18:10 03/13/18 20:50 Temperature 99.8 F H 98.7 F Pulse Rate 100 H 100 H 96 H Respiratory Rate 16 22 20 Blood Pressure 150/97 H 139/97 H 138/91 H Pulse Oximetry 96 95 95 03/13/18 21:00 03/14/18 00:23 03/14/18 04:00 Temperature 99.1 F 98.3 F Pulse Rate 97 H 94 H 93 H Respiratory Rate 20 20 Blood Pressure 145/94 H 151/94 H Pulse Oximetry 95 96 03/14/18 07:20 03/14/18 08:00 03/14/18 11:12 Temperature 98.2 F 98.4 F Pulse Rate 94 H 87 81 Respiratory Rate 20 20 Blood Pressure 176/90 H 155/98 H Pulse Oximetry 95 95 Intake & Output 03/13/18 03/14/18 03/14/18 18:59 06:59 18:59 Intake Total 1000 / 1000 240 / 240 Balance 1000 / 1000 240 / 240 Weight 138.4 kg 113.9 kg Intake: IV 1000 / 1000 NS Inj 1,000 ML @ Wide Open IV. 1000 / 1000 SIG BOLUS ONE Rx#:[id number] Oral 240 / 240 Other: # Voids 1 Weight On Admission 114.1 kg Narrative: GENERAL: AAOx3, no acute distress, adequate nutrition, overweight SKIN: Warm and dry, no rashes. HEAD: Atraumatic. Normocephalic. EYES: Pupils equal, round, reactive to light. No scleral icterus. No injection or drainage. ENT: No nasal bleeding or discharge. Moist mucous membranes. Nonerythematous oropharynx. NECK: Trachea midline. No JVD. Thyroid size within normal limits. CARDIOVASCULAR: Regular rate and rhythm. No murmur, no gallops, no rubs. RESPIRATORY: Clear and equal to auscultation bilaterally. No crackles, no wheezes. No accessory muscle use. GASTROINTESTINAL: Abdomen soft, non-tender, nondistended, normal active bowel sounds. Hepatic and splenic margins not palpable. MUSCULOSKELETAL: Extremities without clubbing or cyanosis. No obvious deformities. No edema. NEUROLOGICAL: Awake and alert. No obvious cranial nerve deficits. Motor grossly within normal limits. No focal deficits. Five out of 5 muscle strength in the arms and legs. Normal speech. PSYCHIATRIC: Appropriate mood and affect; insight and judgment normal. Results - Labs CBC & Chem 7: 03/13/18 17:50 03/13/18 17:50 Labs: Laboratory Results - last 24 hr 03/13/18 03/13/18 03/13/18 17:50 17:50 19:30 CBC w Diff Auto diff final WBC 7.1 RBC 5.16 Hgb 15.3 Hct 45.9 MCV 88.9 MCH 29.6 MCHC 33.3 RDW 13.2 Plt Count 149 L MPV 9.2 Neut % (Auto) 66.7 Lymph % (Auto) 23.3 [place] % (Auto) 8.0 Eos % (Auto) 0.9 Baso % (Auto) 1.1 Neut # (Auto) 4.6 Lymph # (Auto) 1.7 [place] # (Auto) 0.6 Eos # (Auto) 0.1 Baso # (Auto) 0.1 WBC Differential . Differential Comment . Sodium 137 Potassium 3.7 Chloride 101 Carbon Dioxide 23.7 Anion Gap 12 BUN 10 Creatinine 0.74 Estimated GFR Greater than 89 POC Glucose Random Glucose 99 Calcium 8.6 Total Bilirubin 0.4 AST 84 H ALT 112 H Alkaline Phosphatase 115 Total Creatine Kinase 205 CK-MB (CK-2) 2.2 Troponin I Less than 0.02 L Total Protein 7.5 Albumin 3.4 Lipase 184 Urine Color Yellow Urine Clarity Clear Urine pH 7.0 Ur Specific [place] 1.015 Urine Protein Trace Urine Glucose (UA) Negative Urine Ketones Trace Urine Occult Blood Negative Urine Nitrate Negative Urine Bilirubin Negative Urine Urobilinogen 0.2 Ur Leukocyte Esterase Negative Urine WBC 0-5 Micro UA Comment Culture not ind Urine Culture Comments Culture not ind Serum Alcohol 43 H 03/13/18 03/14/18 03/14/18 20:16 07:36 11:25 CBC w Diff WBC RBC Hgb Hct MCV MCH MCHC RDW Plt Count MPV Neut % (Auto) Lymph % (Auto) [place] % (Auto) Eos % (Auto) Baso % (Auto) Neut # (Auto) Lymph # (Auto) [place] # (Auto) Eos # (Auto) Baso # (Auto) WBC Differential Differential Comment Sodium Potassium Chloride Carbon Dioxide Anion Gap BUN Creatinine Estimated GFR POC Glucose 91 113 H 105 Random Glucose Calcium Total Bilirubin AST ALT Alkaline Phosphatase Total Creatine Kinase CK-MB (CK-2) Troponin I Total Protein Albumin Lipase Urine Color Urine Clarity Urine pH Ur Specific [place] Urine Protein Urine Glucose (UA) Urine Ketones Urine Occult Blood Urine Nitrate Urine Bilirubin Urine Urobilinogen Ur Leukocyte Esterase Urine WBC Micro UA Comment Urine Culture Comments Serum Alcohol Caprini VTE Risk Assessment Caprini VTE Risk Assessment: Moderate/High Risk (score >= 2) Caprini Risk Assessment Model: Point Value = 1 Point Value = 2 Point Value = 3 Point Value = 5 Age 41-60 Minor surgery BMI > 25 kg/m2 Swollen legs Varicose veins or History of unexplained or recurrent spontaneous Oral contraceptives or hormone replacement Sepsis (< 1 month) Serious lung disease, including pneumonia (< 1 month) Abnormal pulmonary function Acute myocardial infarction Congestive heart failure (< 1 month) History of inflammatory bowel disease Medical patient at bed rest Age 61-74 Arthroscopic surgery Major open surgery (> 45 min) Laparoscopic surgery (> 45 min) Malignancy Confined to bed (> 72 hours) Immobilizing plaster cast Central venous access Age >= 75 History of VTE Family history of VTE Factor V Leiden Prothrombin [id number] Lupus anticoagulant Anticardiolipin antibodies Elevated serum homocysteine Heparin-induced thrombocytopenia Other congenital or acquired thrombophilia Stroke (< 1 month) Elective arthroplasty Hip, pelvis, or leg fracture Acute spinal cord injury (< 1 month) Prophylaxis Regimen: Total Risk Factor Score Risk Level Prophylaxis Regimen 0-1 Low Early ambulation 2 Moderate Order ONE of the following: *Sequential Compression Device (SCD) *Heparin 5000 units SQ BID 3-4 Higher Order ONE of the following medications: *Heparin 5000 units SQ TID *Enoxaparin/Lovenox 40 mg SQ daily (WT < 150 kg, CrCl > 30 mL/min) *Enoxaparin/Lovenox 30 mg SQ daily (WT < 150 kg, CrCl > 10-29 mL/min) *Enoxaparin/Lovenox 30 mg SQ BID (WT < 150 kg, CrCl > 30 mL/min) AND/OR *Sequential Compression Device (SCD) 5 or more Highest Order ONE of the following medications: *Heparin 5000 units SQ TID (Preferred with Epidurals) *Enoxaparin/Lovenox 40 mg SQ daily (WT < 150 kg, CrCl > 30 mL/min) *Enoxaparin/Lovenox 30 mg SQ daily (WT < 150 kg, CrCl > 10-29 mL/min) *Enoxaparin/Lovenox 30 mg SQ BID (WT < 150 kg, CrCl > 30 mL/min) AND *Sequential Compression Device (SCD) Assessment and Plan - Plan Alcoholism, alcohol withdrawal, weakness Patient presented with generalized weakness and shakiness that responded favorably to IV fluids and some Ativan overnight He states he feels fine right now, all symptoms resolved, he is motivated to quit drinking alcohol Patient was provided with tapering dose of Librium for use at home, he understands that using this with alcohol together could be fatal, he states he will not Discharge plan Patient is medically stable for discharge home He is instructed to use Librium for reducing physical withdrawal from alcohol He is advised to never drink alcohol again He is recommended to visit with Alcoholics Anonymous as soon as possible
== END 2018-03-14 12:39 | disposition home or self-care (01) ==
LOC: PHED 16:32 → PH3 16:32 → PHEDA 16:32 → PH3 20:47
PROVIDERS: ADMIT Family Medicine; ATTEND Family Medicine
DX: F17.210 Nicotine dependence, cigarettes, uncomplicated; E86.0 Dehydration; J45.909 Unspecified asthma, uncomplicated; I10 Essential (primary) hypertension; K21.9 Gastro-esophageal reflux disease without esophagitis; F10.239 Alcohol dependence with withdrawal, unspecified

== ENCOUNTER 2018-07-16 09:11 | Inpatient (IN) ==
[2018-07-16] MEDS ORDERED: Sod Chloride 0.9% Inj 1,000 ML IV.SIG ONE (09:16)
[2018-07-16] MEDS ORDERED: Morphine Inj 4 MG/ML Vial IV.PUSH ONE (09:16)
--- NOTE | 2018-07-16 09:22 | ED ---
HPI General Chief Complaint: Abdominal Pain Stated Complaint: Abdominal Pain Time Seen by Provider: 07/16/18 09:16 Source: patient Mode of arrival: EMS Limitations: physical limitation History of Present Illness HPI narrative: Patient is a 58-year-old male with history of hypertension, GERD , pain, alcoholism, presents to the emergency room with complaints of abdominal pain. Patient reports that for the past week, he has been having abdominal pain. Patient reports that abdominal pain is diffuse, reports that he has been feeling nauseous and did vomit a few times. Patient reports that over the past week, his abdomen has become distended. He has been having bowel movements and did have a bowel movement this morning. Patient reports that he is an alcoholic and drinks about 1/5 of rum each day. Patients last drink was last night. Overall, reports decreased p.o. intake due to his abdominal pain with abdominal swelling. Patient reports that he has never had abdominal distention or swelling in the past, reports that he was never told that he had any liver disease due to his alcoholism. Patient does follow up with her primary care doctor, he was last seen 5 months ago. Patient reports that at this time, he does not take any medications. Patient with no chest pain or shortness of breath, no fever or chills, no other complaints. As per patient's abdominal surgeries, reports no history of abdominal surgeries in the past. Related Data Home Medications Medication Instructions Recorded Confirmed No Known Home Medications 07/16/18 07/16/18 Allergies Allergy/AdvReac Type Severity Reaction Status Date / Time penicillin G Allergy Severe ITCHING Verified 04/27/18 11:13 Review of Systems ROS: all other systems reviewed are negative PMFSH History History Provided By: Patient Medical History Medical History Asthma (Acute) Back pain (Acute) GERD (gastroesophageal reflux disease) (Acute) HTN (hypertension) (Acute) Substance abuse (Acute) Surgical History Surgical History No history of previous surgery (Acute) Family History Family History Other Alcoholism Social History Social History Substance History: Active Abuse Second Hand Smoke Exposure: No Smoking Status: Former smoker Tobacco Type: Cigarettes How Often Do You Have a Drink Containing Alcohol: 4 or more times a week Recent Travel in [facility] within the Last 8 Weeks: No Recent Out of Country Travel within the Last 8 Weeks: No Exam Narrative Exam Narrative: GENERAL: mild distress SKIN: Focused skin assessment warm/dry. HEAD: Atraumatic. Normocephalic. EYES: Pupils equal and round. No scleral icterus. No injection or drainage. ENT: No nasal bleeding or discharge. Mucous membranes pink and moist. NECK: Trachea midline. No JVD. CARDIOVASCULAR: Tachycardia. No murmur appreciated. RESPIRATORY: No accessory muscle use. Clear to auscultation. Breath sounds equal bilaterally. GASTROINTESTINAL: Abdomen distended, diffusely tender, positive bowel sounds. Hepatic and splenic margins not palpable. MUSCULOSKELETAL: No obvious deformities. No clubbing. No cyanosis. No edema. NEUROLOGICAL: Awake and alert. No obvious cranial nerve deficits. Motor grossly within normal limits. Normal speech. PSYCHIATRIC: Anxious mood and affect Course Initial Documented Vital Signs Pulse Rate 110 H 07/16/18 09:15 Pulse Oximetry 94 L 07/16/18 09:15 Last Documented Vital Signs Temperature 98.4 F 07/16/18 09:20 Pulse Rate 120 H 07/16/18 10:23 Respiratory Rate 20 07/16/18 10:23 Blood Pressure 156/85 H 07/16/18 10:23 Pulse Oximetry 92 L 07/16/18 10:25 Critical Care Time Critical Care Time: Yes Total Critical Care Time: 30 Attestation: Aggregate critical care time was 30 minutes. Time to perform other separately billable procedures was not included in the critical care time. My time did not include minutes spent treating any other patients simultaneously or on activities that did not directly contribute to the patient's treatment. The services I provided to this patient were to treat and/or prevent clinically significant deterioration that could result in: , decompensation, deterioration I provided critical care services requiring my management, as noted below: Chart data review, documentation time, medication orders and management, vital sign assessments/reviewing monitor data, ordering and reviewing lab tests, ordering and interpreting/reviewing x-rays and diagnostic studies, care of the patient and discussion of the patient with the admitting physicians. Medical Decision Making MDM Narrative Medical decision making narrative: During the course of the patients emergency department visit, the patients history, examination, and differential diagnosis were reviewed with the patient. The patient was placed on a desk monitor with oximetry and frequent blood pressure monitoring. The patient had an IV access obtained and blood work sent for analysis. The patient was initially provided IVF, IV morphine for pain relief as well as IV zofran. I will also order 1 mg of Ativan for impending alcohol withdrawal as he is tachycardic with a heart rate in the 130s. The patients laboratory studies were reviewed and remarkable for wbc 10.2, hemoglobin 15.4, hematocrit 46.2, platelets 165 Lactic acid is 6.5, patient has been pancultured, with his allergy to penicillin , patient was given a dose of Azactam, Rocephin as well as vancomycin. His LFTs are elevated, his T bili is 5.2 which is elevated from his previous T bili 1.[address] of the abdomen and pelvis shows significant hepatomegaly with diffuse fatty infiltration. Cirrhotic liver with large volume ascites. Patient will require admission to the hospital as he is impending DTs. In addition, he does have a lactic acidosis. Patient will need GI workup including but not limited to MRCP to look for obstruction. Patient will also most likely require a peritoneal tap to remove some of the ascites he has in his abdomen. All results reviewed with patient, patient is agreeable to admission to the hospital. I did review this case with Dr. Farnsworth who accepts pt to his service. Plan to admit in the ICU. Medical Screen Exam Complete: Yes Emergency Medical Condition: Yes Differential Diagnosis Differential Diagnosis: Alcoholic liver cirrhosis, impending DTs due to alcoholism, liver failure, small bowel obstruction, mesenteric ischemia, volvulus, electrolyte abnormality, viral syndrome Medical Records Medical records reviewed: Yes I reviewed the patient's medical records. Lab Data Lab results reviewed: Yes I reviewed the patient's lab results. Result diagrams: 07/16/18 09:35 07/16/18 09:35 Lab Results 07/16/18 07/16/18 07/16/18 Range/Units 09:35 09:35 09:35 CBC w Diff Auto diff final WBC 10.2 (4.0-11.0) th/mm3 RBC 4.90 (4.50-5.90) mil/mm3 Hgb 15.4 (13.0-17.0) gm/dL Hct 46.2 (39.0-51.0) % MCV 94.2 (80.0-100.0) fL MCH 31.4 (27.0-34.0) pg MCHC 33.3 (32.0-36.0) % RDW 15.6 (11.6-17.2) % Plt Count 165 (150-450) th/mm3 MPV 9.6 (7.0-11.0) fL Neut % (Auto) 73.6 H (16.0-70.0) % Lymph % (Auto) 17.0 (9.0-44.0) % [place] % (Auto) 8.4 H (0.0-8.0) % Eos % (Auto) 0.2 (0.0-4.0) % Baso % (Auto) 0.8 (0.0-2.0) % Neut # (Auto) 7.5 (1.8-7.7) th/mm3 Lymph # (Auto) 1.7 (1.0-4.8) th/mm3 [place] # (Auto) 0.9 (0.0-0.9) th/mm3 Eos # (Auto) 0.0 (0.0-0.4) th/mm3 Baso # (Auto) 0.1 (0.0-0.2) th/mm3 WBC Differential . Differential Comment . PT 11.3 (9.8-11.6) sec INR 1.1 Ratio APTT 27.5 (23.4-31.7) sec Sodium 136 (136-145) meq/L Potassium 4.0 (3.5-5.1) meq/L Chloride 97 L (98-107) meq/L Carbon Dioxide 22.8 (21.0-32.0) meq/L Anion Gap 16 H (5-15) meq/L BUN 17 (7-18) mg/dL Creatinine 0.87 (0.60-1.30) mg/dL Estimated GFR Greater than 89 (>89) mL/min Random Glucose 121 H (74-106) mg/dL Lactic Acid (0.4-2.0) mmol/L Calcium 8.2 L (8.5-10.1) mg/dL Magnesium 1.9 (1.5-2.5) mg/dL Total Bilirubin 5.2 H (0.2-1.0) mg/dL AST 356 H (15-37) U/L ALT 112 H (12-78) U/L Alkaline Phosphatase 287 H (45-117) U/L Total Protein 7.7 (6.4-8.2) g/dL Albumin 2.8 L (3.4-5.0) g/dL Lipase 225 (73-393) U/L Serum Alcohol 204 H (0-5) mg/dL 07/16/18 Range/Units 09:50 CBC w Diff WBC (4.0-11.0) th/mm3 RBC (4.50-5.90) mil/mm3 Hgb (13.0-17.0) gm/dL Hct (39.0-51.0) % MCV (80.0-100.0) fL MCH (27.0-34.0) pg MCHC (32.0-36.0) % RDW (11.6-17.2) % Plt Count (150-450) th/mm3 MPV (7.0-11.0) fL Neut % (Auto) (16.0-70.0) % Lymph % (Auto) (9.0-44.0) % [place] % (Auto) (0.0-8.0) % Eos % (Auto) (0.0-4.0) % Baso % (Auto) (0.0-2.0) % Neut # (Auto) (1.8-7.7) th/mm3 Lymph # (Auto) (1.0-4.8) th/mm3 [place] # (Auto) (0.0-0.9) th/mm3 Eos # (Auto) (0.0-0.4) th/mm3 Baso # (Auto) (0.0-0.2) th/mm3 WBC Differential Differential Comment PT (9.8-11.6) sec INR Ratio APTT (23.4-31.7) sec Sodium (136-145) meq/L Potassium (3.5-5.1) meq/L Chloride (98-107) meq/L Carbon Dioxide (21.0-32.0) meq/L Anion Gap (5-15) meq/L BUN (7-18) mg/dL Creatinine (0.60-1.30) mg/dL Estimated GFR (>89) mL/min Random Glucose (74-106) mg/dL Lactic Acid 6.5 H* (0.4-2.0) mmol/L Calcium (8.5-10.1) mg/dL Magnesium (1.5-2.5) mg/dL Total Bilirubin (0.2-1.0) mg/dL AST (15-37) U/L ALT (12-78) U/L Alkaline Phosphatase (45-117) U/L Total Protein (6.4-8.2) g/dL Albumin (3.4-5.0) g/dL Lipase (73-393) U/L Serum Alcohol (0-5) mg/dL Imaging Data Attestation: I personally reviewed and interpreted this imaging study as follows : Radiologist's impression: Abdomen/Pelvis CT 07/16/18 09:16 CONCLUSION: 1. Significant hepatomegaly with diffuse fatty infiltration. No evidence of discrete mass. Cirrhotic appearance of the liver with large volume ascites. Chest X-Ray 07/16/18 09:16 CONCLUSION: Interval enlargement of the cardiac silhouette which may be artificially increased secondary to portable supine technique. Recommend upright PA lateral views when clinically able. Otherwise negative exam. ECG Data EKG Prior to Arrival: Yes Attestation: I personally reviewed and interpreted this ECG as follows: Interpretation: EKG at 0955: Sinus tach at 126bpm, qt/qtc: 369/443 Discharge Plan Discharge Disposition Patient Disposition: ED Admit(ED Internal Use Only) Discharge Condition Condition: Critical Discharge Order Discharge Orders: ED Use Only Admit Order (Routine); Ordered 07/16/18 Ordered By: Jael Telles Discharge Details Diagnosis: Alcohol withdrawal, Acidosis, lactic, Abdominal pain, Ascites Physicians Team ED Provider: Jael Telles Primary Care Provider: Luis Ash Rxs /Orders / Referrals /Forms Prescriptions: No Action No Known Home Medications RF: 0 Discharge Interventions Interventions: Vital Signs Last Done: 07/16/18 10:23 Status ED Status: With Doctor
[2018-07-16 09:48] LABS: Baso # (Auto) 0.1 th/mm3 (0.0-0.2); Baso % (Auto) 0.8 % (0.0-2.0); Eos % (Auto) 0.2 % (0.0-4.0); Hematocrit 46.2 % (39.0-51.0); Hemoglobin 15.4 gm/dL (13.0-17.0); Lymph # (Auto) 1.7 th/mm3 (1.0-4.8); Mean Corpuscular HGB Conc 33.3 % (32.0-36.0); Mean Corpuscular Hemoglobin 31.4 pg (27.0-34.0); Mean Corpuscular Volume 94.2 fL (80.0-100.0); Mean Platelet Volume 9.6 fL (7.0-11.0); Mono # (Auto) 0.9 th/mm3 (0.0-0.9); Mono % (Auto) 8.4 % (0.0-8.0); Neut # (Auto) 7.5 th/mm3 (1.8-7.7); Neut % (Auto) 73.6 % (16.0-70.0); Platelet Count 165 th/mm3 (150-450); Red Cell Distribution Width 15.6 % (11.6-17.2); White Blood Count 10.2 th/mm3 (4.0-11.0)
[2018-07-16 09:53] LABS: Chloride 97 meq/L (98-107); Sodium 136 meq/L (136-145)
[2018-07-16 09:58] LABS: Albumin 2.8 g/dL (3.4-5.0); Anion Gap 16 meq/L (5-15); Blood Urea Nitrogen 17 mg/dL (7-18); Calcium 8.2 mg/dL (8.5-10.1); Carbon Dioxide 22.8 meq/L (21.0-32.0); Glucose,Random 121 mg/dL (74-106); Lipase 225 U/L (73-393); Magnesium 1.9 mg/dL (1.5-2.5)
[2018-07-16 10:00] LABS: Alcohol 204 mg/dL (0-5)
--- NOTE | 2018-07-16 10:00 | XR ---
EXAM DATE: 07/16/2018 9:33 AM EST AGE/SEX: 58 years / Male INDICATIONS: Free air, short of breath, abdomen swelling and painful for several days CLINICAL DATA: This is the patient's initial encounter. Patient reports that signs and symptoms have been present for 3 days and indicates a pain score of 10/10. MEDICAL/SURGICAL HISTORY: None. None. COMPARISON: [facility], CHEST SINGLE AP, 12/22/2017. . FINDINGS: The lungs are hypoinflated. Mild atelectasis identified within the inferior right hemithorax. Cardiac silhouette appears enlarged which may be secondary to portable supine technique. Pulmonary vasculatu re appears normal in caliber. CONCLUSION: Interval enlargement of the cardiac silhouette which may be artificially increased secondary to hitesh ble supine technique. Recommend upright PA lateral views when clinically able. Otherwise negative exa m. Electronically signed by: Regina Kaur MD Board Certified Radiologist 07/16/2018 9:59 AM HALLIE Gandhi
[2018-07-16 10:01] LABS: Alanine Aminotransferase 112 U/L (12-78); Aspartate Aminotransferase 356 U/L (15-37); Glomerular Filtration Rate Greater Than 89 mL/min (>89)
[2018-07-16 10:04] LABS: Total Protein 7.7 g/dL (6.4-8.2)
[2018-07-16 10:06] LABS: Alkaline Phosphatase 287 U/L (45-117)
[2018-07-16 10:15] LABS: Activated Partial Thrombo Time 27.5 sec (23.4-31.7); INR 1.1 Ratio; Prothrombin Time 11.3 sec (9.8-11.6)
--- NOTE | 2018-07-16 10:50 | CT ---
EXAM DATE: 07/16/2018 10:45 AM EST AGE/SEX: 58 years / Male INDICATIONS: Abdominal pain and distention. CLINICAL DATA: This is the patient's initial encounter. Patient reports that signs and symptoms have been present for 1 week and indicates a pain score of 10/10. MEDICAL/SURGICAL HISTORY: Asthma. Gastroesophageal reflux disease. Hypertension. None. ORAL CONTRAST: No oral contrast ingested. RADIATION DOSE: 28.12 CTDI (mGy) ; Patient body habitus COMPARISON: No prior exams available for comparison. TECHNIQUE: Multiple contiguous axial images were obtained through the abdomen and pelvis following b olus infusion of 95 ml Omnipaque 350 (iohexol) nonionic water-soluble contrast as a single exam dos e. No oral contrast ingested. Using automated exposure control and adjustment of the mA and/or kV ac cording to patient size, radiation dose was kept as low as reasonably achievable to obtain optimal di agnostic quality images. DICOM format image data is available electronically for review and comparis on. FINDINGS: Lower Lungs: Minimal platelike atelectasis versus airspace consolidation involving the right lower lo be. Heart size appears normal. Liver: The liver is greatly enlarged and demonstrates significant decreased attenuation. Somewhat nod ular contour consistent with cirrhosis. Free fluid is identified adjacent to the right lobe of the li ritu. No discrete mass or biliary obstruction. Gallbladder appears distended and no stones are visuali zed. Spleen: Homogeneous density without enlargement. Pancreas: Unremarkable without mass or calcification. Kidneys: Normal in size and shape. No evidence of mass or hydronephrosis. Adrenal Glands: Unremarkable. Aorta: The aorta and proximal iliac vessels are grossly unremarkable without aneurysmal dilation. Bowel/Mesentery: The bowel loops are grossly unremarkable. The cecum and sigmoid colon have a normal configuration. Large volume ascites identified throughout the mesentery as well as within the left u pper quadrant. Abdominal Wall: Intact. Retroperitoneum: No evidence of adenopathy in the retrocrural, para-aortic, or deep pelvic regions. Bladder: Contours are smooth. Reproductive Organs: No abnormal masses or calcifications seen. Inguinal: The inguinal region is unremarkable without evidence of adenopathy. Bony Structures: Unremarkable. CONCLUSION: 1. Significant hepatomegaly with diffuse fatty infiltration. No evidence of discrete mass. Cirrhotic appearance of the liver with large volume ascites. Electronically signed by: Regina Kaur MD Board Certified Radiologist 07/16/2018 10:48 AM Byron SWANSON
[2018-07-16] MEDS ORDERED: Vancomycin Inj 1,000 MG in Sodium Chlor 0.9% Inj 250 ML IV.SIG ONE (10:57)
[2018-07-16] MEDS ORDERED: Aztreonam Inj 2 GM in Sodium Chloride 0.9% Inj 100 ML IV.SIG STA (10:58)
[2018-07-16] MEDS: Sod Chloride 0.9% Inj 1,000 ML IV.SIG SCH ×2 (11:14→12:47)
[2018-07-16] MEDS ORDERED: Haloperidol Inj 5 MG/ML Ampul IV.PUSH PRN (11:14)
[2018-07-16] MEDS ORDERED: Acetaminophen 325 MG Tablet PO PRN (11:15)
--- NOTE | 2018-07-16 13:30 | ECG ---
Date Performed: 07/16/2018 Time Performed: 09:55:22 PTAGE: 58 years EKG: SINUS TACHYCARDIA WITH SHORT VA INTERVAL POSSIBLE INFERIOR MYOCARDIAL INFARCTION ABNORMAL R HYTHM ECG PREVIOUS TRACING : 12/22/2017 17.51 Compared to previous tracing, Q-waves are now present in th e inferior leads of uncertain significance. Clinical correlation is recommended DOCTOR: Sanju Newton Interpretating Date/Time 07/16/2018 13:30:06
[2018-07-16 14:00] LABS: Bilirubin,Urine Large (Negative); Clarity,Urine Clear (Clear); Glucose,Urine (UA) Negative (Negative); Leukocyte Esterase,Urine Negative (Negative); Nitrite,Urine Negative (Negative); PH,Urine 6.5 (5.0-8.5); Specific Gravity,Urine 1.015 (1.002-1.035)
[2018-07-16 14:05] LABS: Amphetamine Screen,Urine Neg (Neg); Barbiturate Screen,Urine Neg (Neg); Cannabinoid Screen,Urine Neg (Neg)
[2018-07-16 14:06] LABS: Cocaine Screen,Urine Neg (Neg)
[2018-07-16 14:07] LABS: Opiate Screen,Urine Pos (Neg)
[2018-07-16 14:11] LABS: Ictotest,Urine Positive (Negative)
[2018-07-16 14:12] LABS: Color,Urine Amber (Yellw/Straw)
[2018-07-16 14:14] LABS: RBC,Urine 0-3 /hpf (0-3); Squamous Epithelial Cell,Urine 0-5 /hpf (0-5); WBC,Urine 0-5 /hpf (0-5)
[2018-07-16] MEDS: Morphine Inj 4 MG/ML Vial IV.PUSH PRN ×2 (15:00→19:38)
--- NOTE | 2018-07-16 15:01 | P.HPIM ---
History of Present Illness Primary Care Physician: Luis Ash DO Chief Complaint: Abdominal pain History of Present Illness: The patient is a 58-year-old male with a past medical history of alcohol abuse who is presenting to the hospital with abdominal pain and abdominal swelling. The patient states that about 1 week ago his stomach swelled up very quickly. He has been experiencing pain in the center of his upper and lower as well as mid abdomen. He says that the pain is rated at a 10 out of 10 in severity. He said the morphine he received in the emergency department helped a lot. He says that he drinks 1 bottle of rum daily. He says his sister plans to take him to a 30-day rehabilitation facility. He says he intends to quit drinking alcohol. He states that his bowel movements have been mushy. He has been vomiting intermittently. He says his last alcoholic beverage was yesterday. He expresses that he would like the fluid from his stomach drained. He says he has not had this fluid before. He says he does have a history of liver damage. Inpatient Certification: I certify that the inpatient services were ordered in accordance with Medicare regulations governing the order. This includes certification that hospital inpatient services are reasonable and necessary and in the case of services not specified as inpatient-only under 42 CFR 419.22(n), that they are appropriately provided as inpatient services in accordance to with the 2-midnight benchmark under 43 CFR 412.3(e) Estimated Total Length of Stay (Days): 3 Plans for Post Hospital Care: Home Review of Systems All other systems reviewed negative except as stated in [facility] - History History Provided By: Patient - Medical History Medical History: Medical History (Last Updated 07/16/18 @ 15:00 by Benjamin Abad DO) Chronic bronchitis Liver damage Asthma Back pain GERD (gastroesophageal reflux disease) HTN (hypertension) Substance abuse - Surgical History Surgical History: Surgical History (Last Reviewed 07/16/18 @ 15:00 by Benjamin Abad DO) No history of previous surgery - Family History Family History: Family History (Last Reviewed 07/16/18 @ 09:21 by Jael Telles) Other Alcoholism - Social History I have reviewed the patient's Social History: Yes - Tobacco History Second Hand Smoke Exposure: No Smoking Status: Former smoker Tobacco Type: Cigarettes - Alcohol History How Often Do You Have a Drink Containing Alcohol: 4 or more times a week - Substance Use History Substance History: Active Abuse - Substance Use Type Alcohol Status: Active Route Used: By Mouth Frequency: i bottle of rum per day for three years Last Used: yesterday Reason for Use: Calm Down - Travel History Recent Travel in the [place] Within the Last 8 Weeks: No Recent Travel Out of the Country Within the Last 8 Weeks: No - Immunization History Tetanus Immunization: <5 Years Medications and Allergies Active Medications: Active Medications Acetaminophen (Tylenol) 650 mg PO Q4H PRN PRN Reason: Temp > 100.4, pain 1-2 Flumazenil (Romazecon Inj) 0.2 mg IV.PUSH Q1M PRN PRN Reason: OVERSEDATION Haloperidol Lactate (Haldol Inj) 1 mg IV.PUSH Q15M PRN PRN Reason: for severe agitation Metronidazole/Sodium Chloride (Flagyl 500 Mg Inj) 100 mls @ 100 mls/hr IV.SIG Q8H JOSE Ciprofloxacin/Dextrose (Cipro 400 Mg/200 Ml Inj) 400 mg in 200 mls @ 200 mls/ hr IV.SIG Q12H JOSE Lorazepam (Ativan) 1 mg PO Q4H PRN PRN Reason: for CIWA 8-10 Lorazepam (Ativan) 2 mg PO Q2H PRN PRN Reason: for CIWA 11-14 Lorazepam (Ativan Inj) 2 mg IV.PUSH Q1H PRN PRN Reason: for CIWA 15-20 Lorazepam (Ativan Inj) 2 mg IV.PUSH Q15M PRN PRN Reason: for CIWA > 20 Morphine Sulfate (Morphine Inj) 4 mg IV.PUSH Q4H PRN PRN Reason: pain 6-10 Ondansetron HCl (Zofran Inj) 4 mg IV.PUSH Q6H PRN PRN Reason: NAUSEA OR VOMITING Senna/Docusate Sodium (Lucita-Colace) 1 tab PO BID JOSE Sodium Chloride (Ns Flush) 2 ml IV.FLUSH PRN PRN PRN Reason: FLUSH AFTER USING IV ACCESS Sodium Chloride (Ns Flush) 2 ml IV.FLUSH BID JOSE Sodium Chloride (Ns Flush) 2 ml IV.FLUSH PRN PRN PRN Reason: FLUSH AFTER USING IV ACCESS Allergies Allergy/AdvReac Type Severity Reaction Status Date / Time penicillin G Allergy Severe ITCHING Verified 04/27/18 11:13 Home Medications Medication Instructions Recorded Confirmed Type No Known Home Medications 07/16/18 07/16/18 History Exam Vital signs: Vital Signs 07/16/18 09:15 07/16/18 09:20 07/16/18 09:52 Temperature 98.4 F Pulse Rate 110 H 105 H 120 H Respiratory Rate 22 20 Blood Pressure 181/108 H 171/86 H Pulse Oximetry 94 L 94 L 94 L 07/16/18 10:15 07/16/18 10:23 07/16/18 10:25 Temperature Pulse Rate 120 H Respiratory Rate 20 Blood Pressure 156/85 H Pulse Oximetry 89 L 93 L 92 L 07/16/18 11:19 07/16/18 11:55 07/16/18 12:27 Temperature Pulse Rate 128 H 130 H Respiratory Rate 22 Blood Pressure 154/84 H 141/101 H Pulse Oximetry 95 95 07/16/18 12:35 07/16/18 13:00 Temperature Pulse Rate 130 H 128 H Respiratory Rate 26 H 23 Blood Pressure 145/90 H 145/85 H Pulse Oximetry 92 L 92 L Intake & Output 07/15/18 07/16/18 07/16/18 18:59 06:59 18:59 Intake Total 2099 Balance 2099 Weight 117.934 kg Intake: IV 2099 Azactam Inj 2 GM In NS Inj 100 100 / 100 ML @ 200 mls/hr IV.SIG STAT STA Rx#:[id number] NS Inj 1,000 ML @ 2000 mls/hr 1999 IV.SIG Q30M JOSE Rx#:[id number] Other: Date of Last Bowel Movement 07/16/18 Narrative: GENERAL: Appears uncomfortable. SKIN: Focused skin assessment warm/dry. HEAD: Atraumatic. Normocephalic. EYES: Pupils equal and round. No scleral icterus. No injection or drainage. ENT: No nasal bleeding or discharge. Mucous membranes pink and moist. NECK: Trachea midline. No JVD. CARDIOVASCULAR: Tachycardic. No murmur appreciated. RESPIRATORY: No accessory muscle use. Clear to auscultation. Breath sounds equal bilaterally. GASTROINTESTINAL: Abdomen distended, mildly tender, positive bowel sounds. Hepatic and splenic margins not palpable. MUSCULOSKELETAL: No obvious deformities. No clubbing. No cyanosis. TR edema. NEUROLOGICAL: Awake and alert. No obvious cranial nerve deficits. Motor grossly within normal limits. Normal speech. PSYCHIATRIC: Anxious mood and affect Results - Labs CBC & Chem 7: 07/16/18 09:35 07/16/18 09:35 Labs: Short CBC 07/16/18 Range/Units 09:35 WBC 10.2 (4.0-11.0) th/mm3 Hgb 15.4 (13.0-17.0) gm/dL Hct 46.2 (39.0-51.0) % Plt Count 165 (150-450) th/mm3 BMP 07/16/18 09:35 Sodium 136 Potassium 4.0 Chloride 97 L Carbon Dioxide 22.8 BUN 17 Creatinine 0.87 Calcium 8.2 L Liver Function 07/16/18 Range/Units 09:35 Total Bilirubin 5.2 H (0.2-1.0) mg/dL AST 356 H (15-37) U/L ALT 112 H (12-78) U/L Alkaline Phosphatase 287 H (45-117) U/L Albumin 2.8 L (3.4-5.0) g/dL Urine 07/16/18 Range/Units 12:20 Urine Color Chel[place] (Yellw/Straw) Urine Clarity Clear (Clear) Urine pH 6.5 (5.0-8.5) Ur Specific [place] 1.015 (1.002-1.035) Urine Protein 30 H (Neg-Trace) mg/dL Urine Glucose (UA) Negative (Negative) mg/dL - Imaging Impressions Abdomen/Pelvis CT 07/16/18 09:16 CONCLUSION: 1. Significant hepatomegaly with diffuse fatty infiltration. No evidence of discrete mass. Cirrhotic appearance of the liver with large volume ascites. Chest X-Ray 07/16/18 09:16 CONCLUSION: Interval enlargement of the cardiac silhouette which may be artificially increased secondary to portable supine technique. Recommend upright PA lateral views when clinically able. Otherwise negative exam. Caprini VTE Risk Assessment Caprini VTE Risk Assessment: Moderate/High Risk (score >= 2) Caprini Risk Assessment Model: Point Value = 1 Point Value = 2 Point Value = 3 Point Value = 5 Age 41-60 Minor surgery BMI > 25 kg/m2 Swollen legs Varicose veins or History of unexplained or recurrent spontaneous Oral contraceptives or hormone replacement Sepsis (< 1 month) Serious lung disease, including pneumonia (< 1 month) Abnormal pulmonary function Acute myocardial infarction Congestive heart failure (< 1 month) History of inflammatory bowel disease Medical patient at bed rest Age 61-74 Arthroscopic surgery Major open surgery (> 45 min) Laparoscopic surgery (> 45 min) Malignancy Confined to bed (> 72 hours) Immobilizing plaster cast Central venous access Age >= 75 History of VTE Family history of VTE Factor V Leiden Prothrombin [id number] Lupus anticoagulant Anticardiolipin antibodies Elevated serum homocysteine Heparin-induced thrombocytopenia Other congenital or acquired thrombophilia Stroke (< 1 month) Elective arthroplasty Hip, pelvis, or leg fracture Acute spinal cord injury (< 1 month) Prophylaxis Regimen: Total Risk Factor Score Risk Level Prophylaxis Regimen 0-1 Low Early ambulation 2 Moderate Order ONE of the following: *Sequential Compression Device (SCD) *Heparin 5000 units SQ BID 3-4 Higher Order ONE of the following medications: *Heparin 5000 units SQ TID *Enoxaparin/Lovenox 40 mg SQ daily (WT < 150 kg, CrCl > 30 mL/min) *Enoxaparin/Lovenox 30 mg SQ daily (WT < 150 kg, CrCl > 10-29 mL/min) *Enoxaparin/Lovenox 30 mg SQ BID (WT < 150 kg, CrCl > 30 mL/min) AND/OR *Sequential Compression Device (SCD) 5 or more Highest Order ONE of the following medications: *Heparin 5000 units SQ TID (Preferred with Epidurals) *Enoxaparin/Lovenox 40 mg SQ daily (WT < 150 kg, CrCl > 30 mL/min) *Enoxaparin/Lovenox 30 mg SQ daily (WT < 150 kg, CrCl > 10-29 mL/min) *Enoxaparin/Lovenox 30 mg SQ BID (WT < 150 kg, CrCl > 30 mL/min) AND *Sequential Compression Device (SCD) Assessment and Plan - Plan Acute abdominal pain/ascites/elevated LFTs Secondary to alcohol abuse. CT abdomen: Significant hepatomegaly with diffuse fatty infiltration; No evidence of discrete mass; Cirrhotic appearance of the liver with large volume ascites. He is afebrile and without leukocytosis. Lactic acid level elevated. S/p IVFs. -pain control and antiemetics as needed. -continue IV Cipro and Flagyl. -US assisted paracentesis ordered. -alcohol cessation instruction. -trend LFTs and lactate. Alcohol abuse The pt drinks one bottle of rum daily. -CIWA protocol. -neuro checks, seizure precautions. Tachycardia S/t above. -pain control. -telemetry. HTN Exacerbated by pain. -pain control. -clonidine or Vastec as needed. PPx: SCDs
[2018-07-16] MEDS: Senna/Docusate Sodium 8.6/50 MG Tablet PO SCH (20:05)
[2018-07-16] MEDS: Ciprofloxacin 400 MG/200 ML 400 MG/200 ML PIGGYBACK IV.SIG SCH (22:33)
[2018-07-17] MEDS: Morphine Inj 4 MG/ML Vial IV.PUSH PRN ×5 (00:46→20:42)
[2018-07-17 04:38] LABS: Eos # (Auto) 0.1 th/mm3 (0.0-0.4); Eos % (Auto) 1.1 % (0.0-4.0); Hemoglobin 12.8 gm/dL (13.0-17.0); Lymph # (Auto) 0.9 th/mm3 (1.0-4.8); Mean Corpuscular HGB Conc 33.7 % (32.0-36.0); Mean Corpuscular Hemoglobin 31.2 pg (27.0-34.0); Mean Corpuscular Volume 92.6 fL (80.0-100.0); Mean Platelet Volume 9.9 fL (7.0-11.0); Mono # (Auto) 0.6 th/mm3 (0.0-0.9); Mono % (Auto) 12.1 % (0.0-8.0); Neut # (Auto) 3.3 th/mm3 (1.8-7.7); Neut % (Auto) 66.8 % (16.0-70.0); Platelet Count 58 th/mm3 (150-450); Red Blood Count 4.11 mil/mm3 (4.50-5.90); Red Cell Distribution Width 15.3 % (11.6-17.2); White Blood Count 4.9 th/mm3 (4.0-11.0)
[2018-07-17 04:43] LABS: Chloride 102 meq/L (98-107); Potassium 3.9 meq/L (3.5-5.1); Sodium 138 meq/L (136-145)
[2018-07-17 04:48] LABS: Albumin 2.4 g/dL (3.4-5.0); Calcium 7.7 mg/dL (8.5-10.1)
[2018-07-17 04:49] LABS: Anion Gap 9 meq/L (5-15); Blood Urea Nitrogen 16 mg/dL (7-18); Carbon Dioxide 27.2 meq/L (21.0-32.0); Glucose,Random 92 mg/dL (74-106)
[2018-07-17 04:51] LABS: Alanine Aminotransferase 94 U/L (12-78); Aspartate Aminotransferase 299 U/L (15-37); Glomerular Filtration Rate Greater Than 89 mL/min (>89)
[2018-07-17 04:53] LABS: Total Protein 6.4 g/dL (6.4-8.2)
[2018-07-17 04:54] LABS: Alkaline Phosphatase 216 U/L (45-117)
[2018-07-17 04:59] LABS: RBC Morphology Normal (Normal)
[2018-07-17] MEDS: Senna/Docusate Sodium 8.6/50 MG Tablet PO SCH ×2 (09:28→20:43)
[2018-07-17] MEDS: Ciprofloxacin 400 MG/200 ML 400 MG/200 ML PIGGYBACK IV.SIG SCH ×2 (10:56→22:32)
--- NOTE | 2018-07-17 13:02 | P.PNIM ---
Subjective Interval history: The patient was complaining of trouble breathing from the swelling in his abdomen. He also had some abdominal pain. He requested pain medication. No other acute complaints. Discussed with nursing. Physical Exam Vital signs: Vital Signs 07/16/18 13:00 07/16/18 14:00 07/16/18 16:00 Temperature Pulse Rate 128 H 131 H 128 H Respiratory Rate 23 27 H Blood Pressure 145/85 H 136/104 H Pulse Oximetry 92 L 91 L 07/16/18 16:22 07/16/18 17:00 07/16/18 18:00 Temperature Pulse Rate 124 H 126 H 124 H Respiratory Rate 20 21 24 Blood Pressure 151/85 H 136/90 Pulse Oximetry 91 L 93 L 93 L 07/16/18 19:00 07/16/18 19:21 07/16/18 19:30 Temperature Pulse Rate 126 H Respiratory Rate 26 H Blood Pressure 166/86 H Pulse Oximetry 89 L 93 L 96 07/16/18 19:40 07/16/18 20:00 07/16/18 21:00 Temperature 98.5 F Pulse Rate 107 H 104 H Respiratory Rate 15 22 18 Blood Pressure 148/62 H Pulse Oximetry 94 L 92 L 07/16/18 22:00 18 23:00 07/17/18 00:00 Temperature 98.7 F Pulse Rate 106 H 106 H 104 H Respiratory Rate 18 17 17 Blood Pressure 136/78 165/63 H 135/76 Pulse Oximetry 91 L 93 L 93 L 07/17/18 01:00 07/17/18 02:00 07/17/18 03:00 Temperature Pulse Rate 102 H 100 H 100 H Respiratory Rate 16 15 15 Blood Pressure 133/85 137/87 144/86 H Pulse Oximetry 92 L 93 L 93 L 07/17/18 04:00 07/17/18 05:00 07/17/18 05:45 Temperature 98.6 F Pulse Rate 96 H 94 H 98 H Respiratory Rate 13 16 Blood Pressure 146/85 H 139/73 Pulse Oximetry 94 L 95 07/17/18 06:00 07/17/18 06:59 07/17/18 07:59 Temperature Pulse Rate 94 H 110 H 98 H Respiratory Rate 16 38 H 21 Blood Pressure 133/78 124/69 145/98 H Pulse Oximetry 94 L 94 L 91 L 07/17/18 08:00 07/17/18 08:59 07/17/18 09:04 Temperature Pulse Rate 94 H 98 H 104 H Respiratory Rate 28 H 44 H Blood Pressure 157/103 H 153/89 H Pulse Oximetry 91 L 91 L 91 L Intake & Output 07/16/18 07/17/18 07/17/18 18:59 06:59 18:59 Intake Total 2100 / 2100 1750 / 1750 200 / 200 Output Total 250 / 250 500 / 500 Balance 1850 / 1850 1250 / 1250 200 / 200 Weight 119.9 kg 122.5 kg Intake: IV 2100 / 2100 1750 / 1750 200 / 200 Azactam Inj 2 GM In NS Inj 100 100 / 100 ML @ 200 mls/hr IV.SIG STAT STA Rx#:[id number] Cipro 400 MG/200 ML Inj 400 mg 200 / 200 200 / 200 In 200 ml @ 200 mls/hr IV.SIG Q12H JOSE Rx#:[id number] NS Inj 1,000 ML @ 2000 mls/hr 2000 / 2000 1000 / 1000 IV.SIG Q30M JOSE Rx#:[id number] Vancomycin Inj 1,000 MG In NS 250 / 250 Inj 250 ML @ 250 mls/hr IV.SIG ONCE ONE Rx#:[id number] Flagyl 500 MG Inj 100 ML @ 100 300 / 300 mls/hr IV.SIG Q8H JOSE Rx#: [id number] Output: Urine 250 / 250 500 / 500 Other: Date of Last Bowel Movement 07/16/18 07/16/18 07/16/18 Weight On Admission 117.9 kg Narrative: GENERAL: No distress. SKIN: Focused skin assessment warm/dry. HEAD: Atraumatic. Normocephalic. EYES: Pupils equal and round. No scleral icterus. No injection or drainage. ENT: No nasal bleeding or discharge. Mucous membranes pink and moist. NECK: Trachea midline. No JVD. CARDIOVASCULAR: Tachycardic. No murmur appreciated. RESPIRATORY: No accessory muscle use. Clear to auscultation. Breath sounds equal bilaterally. GASTROINTESTINAL: Abdomen distended, mildly tender, positive bowel sounds. Hepatic and splenic margins not palpable. MUSCULOSKELETAL: No obvious deformities. No clubbing. No cyanosis. TR edema. NEUROLOGICAL: Awake and alert. No obvious cranial nerve deficits. Motor grossly within normal limits. Normal speech. PSYCHIATRIC: Anxious mood and affect Results - Labs CBC & Chem 7: 07/17/18 04:14 07/17/18 04:14 Laboratory Results - last 24 hr 07/16/18 07/16/18 07/16/18 12:20 12:20 13:50 CBC w Diff WBC RBC Hgb Hct MCV MCH MCHC RDW Plt Count MPV Neut % (Auto) Lymph % (Auto) [place] % (Auto) Eos % (Auto) Baso % (Auto) Neut # (Auto) Lymph # (Auto) [place] # (Auto) Eos # (Auto) Baso # (Auto) WBC Differential Diff Scan Differential Comment Platelet Estimate Platelet Morphology RBC Morphology Sodium Potassium Chloride Carbon Dioxide Anion Gap BUN Creatinine Estimated GFR Random Glucose Lactic Acid 4.1 H* Calcium Total Bilirubin AST ALT Alkaline Phosphatase Total Protein Albumin Ur Collection Type Clean catch Urine Color Chelo Urine Clarity Clear Urine pH 6.5 Ur Specific [place] 1.015 Urine Protein 30 H Urine Glucose (UA) Negative Urine Ketones 15 H Urine Occult Blood Negative Urine Nitrate Negative Urine Bilirubin Large H Urine Ictotest Positive H Urine Urobilinogen 4.0 H Ur Leukocyte Esterase Negative Urine RBC 0-3 Urine WBC 0-5 Ur Squamous Epith Cells 0-5 Micro UA Comment Culture not ind Ur Microscopic Review Microscopic reviewed Urine Culture Comments Culture not ind Urine Opiates Screen Pos H Ur Barbiturates Screen Neg Ur Amphetamines Screen Neg U Benzodiazepines Scrn Neg Urine Cocaine Screen Neg U Cannabinoids Screen Neg 07/16/18 07/17/18 07/17/18 18:09 04:14 04:14 CBC w Diff Slide review pending WBC 4.9 D RBC 4.11 L Hgb 12.8 L D Hct 38.0 L MCV 92.6 MCH 31.2 MCHC 33.7 RDW 15.3 Plt Count 58 L D MPV 9.9 Neut % (Auto) 66.8 Lymph % (Auto) 19.0 [place] % (Auto) 12.1 H Eos % (Auto) 1.1 Baso % (Auto) 1.0 Neut # (Auto) 3.3 Lymph # (Auto) 0.9 L [place] # (Auto) 0.6 Eos # (Auto) 0.1 Baso # (Auto) 0.0 WBC Differential . Diff Scan Auto diff confirmed Differential Comment . Platelet Estimate Low L Platelet Morphology Enlarged H RBC Morphology Normal Sodium 138 Potassium 3.9 Chloride 102 Carbon Dioxide 27.2 Anion Gap 9 BUN 16 Creatinine 0.78 Estimated GFR Greater than 89 Random Glucose 92 Lactic Acid 2.3 H Calcium 7.7 L Total Bilirubin 5.2 H AST 299 H ALT 94 H Alkaline Phosphatase 216 H Total Protein 6.4 D Albumin 2.4 L Ur Collection Type Urine Color Urine Clarity Urine pH Ur Specific [place] Urine Protein Urine Glucose (UA) Urine Ketones Urine Occult Blood Urine Nitrate Urine Bilirubin Urine Ictotest Urine Urobilinogen Ur Leukocyte Esterase Urine RBC Urine WBC Ur Squamous Epith Cells Micro UA Comment Ur Microscopic Review Urine Culture Comments Urine Opiates Screen Ur Barbiturates Screen Ur Amphetamines Screen U Benzodiazepines Scrn Urine Cocaine Screen U Cannabinoids Screen Microbiology 07/16/18 18:09 Blood - Peripheral Aerobic Blood Culture - Preliminary No growth in 1 day 07/16/18 18:09 Blood - Peripheral Anaerobic Blood Culture - Preliminary No growth in 1 day 07/16/18 18:03 Blood - Peripheral Aerobic Blood Culture - Preliminary No growth in 1 day 07/16/18 18:03 Blood - Peripheral Anaerobic Blood Culture - Preliminary No growth in 1 day Assessment and Plan - Plan Acute abdominal pain/ascites/elevated LFTs Secondary to alcohol abuse. CT abdomen: Significant hepatomegaly with diffuse fatty infiltration; No evidence of discrete mass; Cirrhotic appearance of the liver with large volume ascites. He is afebrile and without leukocytosis. Lactic acid level elevated. S/p IVFs. -pain control and antiemetics as needed. -continue IV Cipro and Flagyl. -US assisted paracentesis pending for this afternoon. Follow cultures. -alcohol cessation instruction. -trend LFTs and lactate. Improving. Alcohol abuse The pt drinks one bottle of rum daily. -CIWA protocol. -neuro checks, seizure precautions. Tachycardia S/t above. -pain control. -telemetry. HTN Exacerbated by pain and alcohol withdrawal. -pain control. -clonidine or Vastec as needed. -treat withdrawal. PPx: SCDs
--- NOTE | 2018-07-17 16:24 | US ---
EXAM DATE: 07/17/2018 4:20 PM EST AGE/SEX: 58 years / Male INDICATIONS: Ascites. CLINICAL DATA: This is the patient's initial encounter. Patient reports that signs and symptoms have been present for 1 week and indicates a pain score of 3/10. MEDICAL/SURGICAL HISTORY: Asthma. Gastroesophageal reflux disease. Hypertension. Liver damag e. ETOH abuse. Chronic bronchitis. None. COMPARISON: [facility], CT ABDOMEN & PELVIS W CONTRAST, 07/16/2018. . Proceduralist: DENISSE Bolaños FLUID: Total volume of 4100 cc of clear, yellow fluid was removed. Fluid was sent to lab for ordered studies . . . TECHNIQUE: Ultrasound guidance for abdominal paracentesis. Paracentesis. The risks, benefits, and alternatives to ultrasound guided paracentesis were explained to the patient in detail including the risk of bleeding and infection. Written and verbal informed consent was obt ained. With the patient on the ultrasound table, ultrasound imaging was used to select the most appropriate approach for paracentesis. Overlying skin was prepped and draped in the usual sterile fashion and wi th a local anesthetic, a dermatotomy was made with an 11 blade scalpel. A 6 Frisian [id number] ca theter was introduced into the peritoneal cavity and fluid was collected. Post procedure scanning reveals no hematoma or other complication. The patient tolerated the procedu re well and left the ultrasound suite in stable condition. FINDINGS: Adequate fluid for paracentesis. CONCLUSION: 1. Uncomplicated paracentesis. Electronically signed by: Viktor Weiss MD Board Certified Radiologist 07/17/2018 4:23 PM HALLIE Gandhi
[2018-07-17] MEDS: LORazepam 1 MG Tablet PO PRN (16:43)
[2018-07-17 18:55] LABS: Mesothelial,Peritoneal Fluid 8 %; Neutrophils,Peritoneal Fluid 28 %; RBC,Peritoneal Fluid 273 /mm3 (0-0)
[2018-07-17 20:22] LABS: Total Protein,Peritoneal Fluid 0.8 gm/dL
[2018-07-18] MEDS: Morphine Inj 4 MG/ML Vial IV.PUSH PRN ×6 (00:39→21:33)
[2018-07-18 05:03] LABS: Baso % (Auto) 1.1 % (0.0-2.0); Eos # (Auto) 0.2 th/mm3 (0.0-0.4); Eos % (Auto) 3.7 % (0.0-4.0); Hematocrit 37.4 % (39.0-51.0); Hemoglobin 12.8 gm/dL (13.0-17.0); Lymph # (Auto) 0.9 th/mm3 (1.0-4.8); Lymph % (Auto) 22.6 % (9.0-44.0); Mean Corpuscular HGB Conc 34.2 % (32.0-36.0); Mean Corpuscular Hemoglobin 31.9 pg (27.0-34.0); Mean Corpuscular Volume 93.2 fL (80.0-100.0); Mean Platelet Volume 10.5 fL (7.0-11.0); Mono # (Auto) 0.4 th/mm3 (0.0-0.9); Mono % (Auto) 9.7 % (0.0-8.0); Neut # (Auto) 2.7 th/mm3 (1.8-7.7); Neut % (Auto) 62.9 % (16.0-70.0); Platelet Count 75 th/mm3 (150-450); Red Blood Count 4.02 mil/mm3 (4.50-5.90); Red Cell Distribution Width 15.3 % (11.6-17.2); White Blood Count 4.2 th/mm3 (4.0-11.0)
[2018-07-18 05:14] LABS: Chloride 101 meq/L (98-107); Potassium 3.8 meq/L (3.5-5.1); Sodium 136 meq/L (136-145)
[2018-07-18 05:17] LABS: Calcium 8.2 mg/dL (8.5-10.1)
[2018-07-18 05:18] LABS: Albumin 2.3 g/dL (3.4-5.0); Anion Gap 7 meq/L (5-15); Blood Urea Nitrogen 11 mg/dL (7-18); Glucose,Random 81 mg/dL (74-106)
[2018-07-18 05:19] LABS: RBC Morphology Normal (Normal)
[2018-07-18 05:20] LABS: Alanine Aminotransferase 89 U/L (12-78)
[2018-07-18 05:21] LABS: Aspartate Aminotransferase 290 U/L (15-37); Glomerular Filtration Rate Greater Than 89 mL/min (>89)
[2018-07-18 05:22] LABS: Total Protein 6.2 g/dL (6.4-8.2)
[2018-07-18 05:23] LABS: Alkaline Phosphatase 197 U/L (45-117)
[2018-07-18] MEDS: Senna/Docusate Sodium 8.6/50 MG Tablet PO SCH ×2 (08:54→21:34)
--- NOTE | 2018-07-18 11:25 | P.PNIM ---
Subjective Interval history: no abdominal pain this morning, says abdomen does not feel tense today. Physical Exam Vital signs: Last Vital Signs Temp 98.0 F 07/18/18 04:00 Pulse 108 H 07/18/18 06:00 Resp 13 07/18/18 06:00 BP 116/61 07/18/18 06:00 Pulse Ox 96 07/17/18 20:00 Intake & Output 07/16/18 07/17/18 07/18/18 07/19/18 06:59 06:59 06:59 06:59 Intake Total 3850 / 3850 940 / 940 Output Total 750 / 750 1000 / 1000 Balance 3100 / 3100 -60 / -60 Weight 122.5 kg 115.8 kg Narrative: GENERAL: No distress. SKIN: Focused skin assessment warm/dry. HEENT: not pale,scleral icterus note. NECK: No JVD. CARDIOVASCULAR: Tachycardic,regular rhythm,no murmurs or rubs. RESPIRATORY: No accessory muscle use. Clear to auscultation. Breath sounds equal bilaterally. GASTROINTESTINAL: Abdomen grossly distended,ascites+, balloted liver edge on epigastric and medial aspect RUQ, normoactive bowel sounds, Hepatic and splenic margins not palpable. MUSCULOSKELETAL: No obvious deformities. No clubbing. No cyanosis. TR edema. NEUROLOGICAL: Awake and alert. No obvious cranial nerve deficits. Motor grossly within normal limits. Normal speech. PSYCHIATRIC: Anxious mood and affect Results Labs CBC & Chem 7: 07/18/18 04:50 07/19/18 09:00 Labs: Microbiology 07/16/18 18:09 Blood - Peripheral Aerobic Blood Culture - Preliminary No growth in 2 days 07/16/18 18:09 Blood - Peripheral Anaerobic Blood Culture - Preliminary No growth in 2 days 07/16/18 18:03 Blood - Peripheral Aerobic Blood Culture - Preliminary No growth in 2 days 07/16/18 18:03 Blood - Peripheral Anaerobic Blood Culture - Preliminary No growth in 2 days Imaging Imaging: Impressions Paracentesis Ultrasound 07/17/18 00:00 CONCLUSION: 1. Uncomplicated paracentesis. Assessment and Plan Plan 58 yo m presented with abdominal pain and swelling. Acute abdominal pain/ascites/elevated LFTs: Due to Alcoholic liver cirrhosis, alcoholic hepatitis as well. CT abdomen: Significant hepatomegaly with diffuse fatty infiltration; No evidence of discrete mass; Cirrhotic appearance of the liver with large volume ascites. He is afebrile and without leukocytosis. Lactic acid level initially elevated, now trending down. s/p paracentesis, 4.1 liters removed on 07/18, noted neutrophils <250, hence no SBP. Will discontinue antibiotics. SAAG -2. Ascitic fluid LDH 59, glucose 97. -Maddrey discriminant factor is low, no need for steroid therapy. -blood cultures negative. - follow up ascitic fluid cultures. -trend LFTs and lactate. Improving. given Cirrhosis, start on Spironolactone for now, and can consider starting Lasix as well. -will need GI f/up Alcohol abuse- The pt drinks one bottle of rum daily. -keep CIWA protocol. -neuro checks, seizure precautions. Tachycardia S/t above. -pain control. -telemetry. HTN Exacerbated by pain and alcohol withdrawal. -pain control. -clonidine or Vastec as needed. -treat withdrawal. Progress Note: Quality VTE Deep Vein Thrombosis/Pulmonary Embolism Present on Admission: No
[2018-07-18] MEDS: Ciprofloxacin 400 MG/200 ML 400 MG/200 ML PIGGYBACK IV.SIG SCH (11:28)
[2018-07-18] MEDS: Spironolactone 25 MG Tablet PO SCH (13:06)
[2018-07-19] MEDS: Morphine Inj 4 MG/ML Vial IV.PUSH PRN ×2 (02:01→06:08)
[2018-07-19] MEDS: LORazepam 1 MG Tablet PO PRN (04:46)
[2018-07-19] MEDS: Spironolactone 25 MG Tablet PO SCH (08:28)
[2018-07-19] MEDS: Senna/Docusate Sodium 8.6/50 MG Tablet PO SCH ×2 (08:28→20:43)
[2018-07-19 10:13] LABS: Chloride 97 meq/L (98-107); Potassium 3.4 meq/L (3.5-5.1); Sodium 134 meq/L (136-145)
[2018-07-19 10:16] LABS: Calcium 7.9 mg/dL (8.5-10.1)
[2018-07-19 10:17] LABS: Albumin 2.3 g/dL (3.4-5.0); Anion Gap 8 meq/L (5-15); Blood Urea Nitrogen 7 mg/dL (7-18); Carbon Dioxide 29.5 meq/L (21.0-32.0); Glucose,Random 113 mg/dL (74-106)
[2018-07-19 10:20] LABS: Alanine Aminotransferase 90 U/L (12-78); Aspartate Aminotransferase 249 U/L (15-37); Glomerular Filtration Rate Greater Than 89 mL/min (>89)
[2018-07-19 10:22] LABS: Total Protein 6.3 g/dL (6.4-8.2)
[2018-07-19 10:23] LABS: Alkaline Phosphatase 205 U/L (45-117)
--- NOTE | 2018-07-19 15:54 | P.PNIM ---
Subjective Interval history: abdominal pain is improving. Physical Exam Vital signs: Last Vital Signs Temp 97.7 F 07/19/18 12:10 Pulse 112 H 07/19/18 12:10 Resp 20 07/19/18 12:10 BP 170/95 H 07/19/18 12:10 Pulse Ox 93 L 07/19/18 12:10 Intake & Output 07/17/18 07/18/18 07/19/18 07/20/18 06:59 06:59 06:59 06:59 Intake Total 3850 / 3850 940 / 940 1160 / 1160 Output Total 750 / 750 1000 / 1000 2074 / 2074 Balance 3100 / 3100 -60 / -60 -915 / -915 Weight 122.5 kg 115.8 kg 115.5 kg Narrative: GENERAL: No distress. SKIN: Focused skin assessment warm/dry. HEENT: not pale,scleral icterus note. NECK: No JVD. CARDIOVASCULAR: Tachycardic,regular rhythm,no murmurs or rubs. RESPIRATORY: No accessory muscle use. Clear to auscultation. Breath sounds equal bilaterally. GASTROINTESTINAL: Abdomen grossly distended,ascites+, balloted liver edge on epigastric and medial aspect RUQ, normoactive bowel sounds, Hepatic and splenic margins not palpable. MUSCULOSKELETAL: No obvious deformities. No clubbing. No cyanosis. TR edema. NEUROLOGICAL: Awake and alert. No obvious cranial nerve deficits. Motor grossly within normal limits. Normal speech. PSYCHIATRIC: Anxious mood and affect Results Labs CBC & Chem 7: 07/18/18 04:50 07/20/18 05:30 Labs: Microbiology 07/16/18 18:09 Blood - Peripheral Aerobic Blood Culture - Preliminary No growth in 3 days 07/16/18 18:09 Blood - Peripheral Anaerobic Blood Culture - Preliminary No growth in 3 days 07/16/18 18:03 Blood - Peripheral Aerobic Blood Culture - Preliminary No growth in 3 days 07/16/18 18:03 Blood - Peripheral Anaerobic Blood Culture - Preliminary No growth in 3 days Assessment and Plan Plan 58 yo m presented with abdominal pain and swelling. Acute abdominal pain/ascites/elevated LFTs: Due to Alcoholic liver cirrhosis, alcoholic hepatitis as well. CT abdomen: Significant hepatomegaly with diffuse fatty infiltration; No evidence of discrete mass; Cirrhotic appearance of the liver with large volume ascites. He is afebrile and without leukocytosis. Lactic acid level initially elevated, now trending down. s/p paracentesis, 4.1 liters removed on 07/18, noted neutrophils <250, hence no SBP. Will discontinue antibiotics. SAAG -2. Ascitic fluid LDH 59, glucose 97. -Maddrey discriminant factor is low, no need for steroid therapy. -blood cultures negative. - follow up ascitic fluid cultures. -trend LFTs and lactate. Improving. given Cirrhosis, start on Spironolactone for now, and can consider starting Lasix as well. -will need GI f/up Alcohol abuse- The pt drinks one bottle of rum daily. -keep CIWA protocol. -neuro checks, seizure precautions. Tachycardia S/t above. -pain control. -telemetry. HTN Exacerbated by pain and alcohol withdrawal. -pain control. -clonidine or Vastec as needed. -treat withdrawal. stable for transfer to med surg Progress Note: Quality VTE Deep Vein Thrombosis/Pulmonary Embolism Present on Admission: No
[2018-07-20 06:33] LABS: Chloride 100 meq/L (98-107); INR 1.3 Ratio; Potassium 3.5 meq/L (3.5-5.1); Prothrombin Time 12.7 sec (9.8-11.6); Sodium 137 meq/L (136-145)
[2018-07-20 06:37] LABS: Calcium 8.1 mg/dL (8.5-10.1)
[2018-07-20 06:38] LABS: Albumin 2.3 g/dL (3.4-5.0); Anion Gap 10 meq/L (5-15); Blood Urea Nitrogen 7 mg/dL (7-18); Carbon Dioxide 26.8 meq/L (21.0-32.0); Glucose,Random 74 mg/dL (74-106)
[2018-07-20 06:41] LABS: Alanine Aminotransferase 89 U/L (12-78); Aspartate Aminotransferase 214 U/L (15-37); Glomerular Filtration Rate Greater Than 89 mL/min (>89)
[2018-07-20 06:42] LABS: Total Protein 6.4 g/dL (6.4-8.2)
[2018-07-20 06:44] LABS: Alkaline Phosphatase 205 U/L (45-117)
[2018-07-20 08:52] LABS: Hepatitits B Surface Antigen Nonreactive (Nonreactive)
[2018-07-20] MEDS: Spironolactone 25 MG Tablet PO SCH (09:24)
[2018-07-20] MEDS: Senna/Docusate Sodium 8.6/50 MG Tablet PO SCH ×2 (09:25→21:20)
[2018-07-20 09:29] LABS: Hepatitis A IgM Antibody Nonreactive (Nonreactive)
--- NOTE | 2018-07-20 16:55 | P.PNIM ---
Subjective Interval history: tremulous this morning. abdominal pain improving. CIWA score was 14. Physical Exam Vital signs: Last Vital Signs Temp 98.3 F 07/20/18 16:00 Pulse 101 H 07/20/18 16:00 Resp 18 07/20/18 13:09 BP 133/85 07/20/18 16:00 Pulse Ox 95 07/20/18 16:00 Intake & Output 07/18/18 07/19/18 07/20/18 07/21/18 06:59 06:59 06:59 06:59 Intake Total 940 / 940 1160 / 1160 480 / 480 Output Total 1000 / 1000 2075 / 2075 1000 / 1000 Balance -60 / -60 -915 / -915 -520 / -520 Weight 115.8 kg 115.5 kg 115.1 kg Narrative: GENERAL: No distress. SKIN: Focused skin assessment warm/dry. HEENT: not pale,scleral icterus note. NECK: No JVD. CARDIOVASCULAR: Tachycardic,regular rhythm,no murmurs or rubs. RESPIRATORY: No accessory muscle use. Clear to auscultation. Breath sounds equal bilaterally. GASTROINTESTINAL: Abdomen grossly distended,ascites+, balloted liver edge on epigastric and medial aspect RUQ, normoactive bowel sounds, Hepatic and splenic margins not palpable. MUSCULOSKELETAL: No obvious deformities. No clubbing. No cyanosis. TR edema. NEUROLOGICAL: Awake and alert. No obvious cranial nerve deficits. Motor grossly within normal limits. Normal speech. PSYCHIATRIC: Anxious mood and affect Results Labs CBC & Chem 7: 07/18/18 04:50 07/20/18 05:30 Labs: Microbiology 07/16/18 18:09 Blood - Peripheral Aerobic Blood Culture - Preliminary No growth in 4 days 07/16/18 18:09 Blood - Peripheral Anaerobic Blood Culture - Preliminary No growth in 4 days 07/16/18 18:03 Blood - Peripheral Aerobic Blood Culture - Preliminary No growth in 4 days 18 18:03 Blood - Peripheral Anaerobic Blood Culture - Preliminary No growth in 4 days Assessment and Plan Plan 58 yo m presented with abdominal pain and swelling. Acute abdominal pain/ascites/elevated LFTs: Due to Alcoholic liver cirrhosis, alcoholic hepatitis as well. CT abdomen: Significant hepatomegaly with diffuse fatty infiltration; No evidence of discrete mass; Cirrhotic appearance of the liver with large volume ascites. He is afebrile and without leukocytosis. Lactic acid level initially elevated, now trending down. s/p paracentesis, 4.1 liters removed on 07/18, noted neutrophils <250, hence no SBP. discontinued antibiotics. SAAG -2. Ascitic fluid LDH 59, glucose 97. -Maddrey discriminant factor is low, no need for steroid therapy. -blood cultures negative. - follow up ascitic fluid cultures. -trend LFTs and lactate. Improving. -Thrombocytopenia likely due to cirrhosis given Cirrhosis, start on Spironolactone for now, and can consider starting Lasix as well. liver enzymes trending down but bilirubinemia trending up, no abdominal pain, no features to suggest cholecystitis.May be due to cholestasis. if persistent then will obtain RUQ sonogram vs HIDA and consider GI consultation. -will need GI f/up Alcohol abuse- The pt drinks one bottle of rum daily. -keep [facility] protocol. -neuro checks, seizure precautions. 07/20- still has intermittent withdrawal symptoms. ciwa 14 in am,received meds with symptomatic improvement. Tachycardia S/t above. -pain control. -telemetry. HTN--BP now controlled with better symptom control. Exacerbated by pain and alcohol withdrawal. Progress Note: Quality VTE Deep Vein Thrombosis/Pulmonary Embolism Present on Admission: No
[2018-07-21 06:51] LABS: Chloride 101 meq/L (98-107); Potassium 3.4 meq/L (3.5-5.1); Sodium 136 meq/L (136-145)
[2018-07-21 06:55] LABS: Albumin 2.3 g/dL (3.4-5.0); Anion Gap 8 meq/L (5-15); Carbon Dioxide 26.9 meq/L (21.0-32.0); Glucose,Random 77 mg/dL (74-106)
[2018-07-21 06:56] LABS: Blood Urea Nitrogen 11 mg/dL (7-18)
[2018-07-21 06:59] LABS: Alanine Aminotransferase 82 U/L (12-78); Aspartate Aminotransferase 172 U/L (15-37); Glomerular Filtration Rate Greater Than 89 mL/min (>89)
[2018-07-21 07:00] LABS: Total Protein 6.5 g/dL (6.4-8.2)
[2018-07-21 07:01] LABS: Alkaline Phosphatase 198 U/L (45-117)
[2018-07-21] MEDS: Spironolactone 25 MG Tablet PO SCH (08:02)
[2018-07-21] MEDS: Senna/Docusate Sodium 8.6/50 MG Tablet PO SCH (08:02)
[2018-07-21] MEDS: LORazepam 1 MG Tablet PO PRN (10:50)
[2018-07-21 13:01] VITALS: BP 144/83; PULSE 107; RESP 16; TEMP 98; O2SAT 96
--- NOTE | 2018-07-21 15:01 | P.DS ---
DS: Providers Date of admission: 07/16/18 11:23 Primary care physician: Luis Ash DO Brief History from admission: The patient is a 58-year-old male with a past medical history of alcohol abuse who is presenting to the hospital with abdominal pain and abdominal swelling. The patient states that about 1 week ago his stomach swelled up very quickly. He has been experiencing pain in the center of his upper and lower as well as mid abdomen. He says that the pain is rated at a 10 out of 10 in severity. He said the morphine he received in the emergency department helped a lot. He says that he drinks 1 bottle of rum daily. He says his sister plans to take him to a 30-day rehabilitation facility. He says he intends to quit drinking alcohol. He states that his bowel movements have been mushy. He has been vomiting intermittently. He says his last alcoholic beverage was yesterday. He expresses that he would like the fluid from his stomach drained. He says he has not had this fluid before. He says he does have a history of liver damage. DS: Diagnosis Discharge Diagnosis (1) Alcohol withdrawal: Status: Acute (2) Ascites: Status: Acute (3) Liver cirrhosis: Status: Acute (4) Alcoholic hepatitis: Status: Acute DS: Summary ISSUES ADDRESSED DURING THIS HOSPITALIZATION: 1.Abdominal pain/ascites/elevated LFTs: Due to Alcoholic liver cirrhosis, alcoholic hepatitis as well. Patient was initially admitted to the ICU.He was afebrile and without leukocytosis. Lactic acid level initially elevated,but had trended down by the time of discharge. CT abdomen showed: Significant hepatomegaly with diffuse fatty infiltration; No evidence of discrete mass; Cirrhotic appearance of the liver with large volume ascites. He was initially started on IV antibiotics to cover for possible SBP. Initially he was on IV pain medication and was weaned off them to oral medication which he was not requiring by the time of discharge. Paracentesis was done on 07/18, 4.1 liters. Work up noted neutrophils <250, hence no SBP, antibiotics were discontinued. SAAG -2. Ascitic fluid LDH 59, glucose 97. blood cultures remained negative Maddrey discriminant factor is low hence no need for steroid therapy for alcoholic hepatitis. Liver enzyme trends improved but bilirubin trended up peaked at 6.1 even though patient did not have any RUQ pain then started trending down.Patient did not have any no abdominal pain, no features to suggest cholecystitis.Elevated bilirubin may likely be due to cholestasis. Patient was started on Spironolactone 25mg,dose can be adjusted. he will need to follow up with Gastroenterology in the outpatient setting. Liver profile should be repeated on follow up. 2. Alcohol withdrawal: patient was placed on Benzodiazepines and CIWA protocol was followed. His symptoms improved, was asymptomatic by the time of discharge. He was given a prescription for prn Lorazepam(6pills) on discharge. He has been counseled to abstain from alcohol use. He intends to quit drinking and hopes to attend a rehab program. 3.Thrombocytopenia likely due to cirrhosis. will need monitoring in the outpatient setting. Patient is to follow up with his PCP within 1 week of discharge for re- evaluation. Time Spent with Patient Total time spent providing and/or coordinating discharge services: Quality: VTE Deep Vein Thrombosis/Pulmonary Embolism Present on Admission: No Exam Narrative Exam Narrative: GENERAL: No distress. SKIN: Focused skin assessment warm/dry. HEENT: not pale,scleral icterus note. NECK: No JVD. CARDIOVASCULAR: regular rate and rhythm,s1s2 normal,no murmurs or rubs. RESPIRATORY: No accessory muscle use. Clear to auscultation. Breath sounds equal bilaterally. GASTROINTESTINAL: Abdomen distended(improved),soft, non tender, ascites+, balloted liver edge on epigastric and medial aspect RUQ, normoactive bowel sounds. MUSCULOSKELETAL: No obvious deformities. No clubbing. No cyanosis. no pedal edema. NEUROLOGICAL: Awake and alert and oriented x4. No obvious cranial nerve deficits. Motor grossly within normal limits. Normal speech. Results Labs on day of discharge: Labs from last 24 hours 07/21/18 06:00 Sodium 136 Potassium 3.4 L Chloride 101 Carbon Dioxide 26.9 Anion Gap 8 BUN 11 Creatinine 0.66 Estimated GFR Greater than 89 Random Glucose 77 Calcium 8.0 L Total Bilirubin 5.5 H AST 172 H ALT 82 H Alkaline Phosphatase 198 H Total Protein 6.5 Albumin 2.3 L Impressions ITS Impressions Abdomen/Pelvis CT 07/16/18 09:16 CONCLUSION: 1. Significant hepatomegaly with diffuse fatty infiltration. No evidence of discrete mass. Cirrhotic appearance of the liver with large volume ascites. Chest X-Ray 07/16/18 09:16 CONCLUSION: Interval enlargement of the cardiac silhouette which may be artificially increased secondary to portable supine technique. Recommend upright PA lateral views when clinically able. Otherwise negative exam. Paracentesis Ultrasound 07/17/18 00:00 CONCLUSION: 1. Uncomplicated paracentesis. Discharge Plan Discharge Disposition Patient Disposition: 01 Discharge Home Discharge Condition Condition: Fair Discharge Order Discharge Orders: Discharge Order (Routine); Ordered 07/21/18 Ordered By: Rick Bansal Discharge Details Anticipated Discharge Date: 07/21/18 Physicians Team Primary Care Provider: Luis Ash Attending Provider: Rick Bansal Rxs /Orders / Referrals /Forms Prescriptions: New spironolactone 25 mg tablet 25 mg PO DAILY Qty: 30 RF: 0 lorazepam 1 mg tablet 1 mg PO Q8H PRN (Reason: alcohol withdrawal) Qty: 6 RF: 0 No Action No Known Home Medications RF: 0 Referrals: Luis Ash DO [Primary Care Provider] - See Instructions Discharge Instructions Patient Printed Instructions: Cirrhosis (DC), Abuse of Alcohol (DC), Ascites ( DC) Status ED Status: Left Department Discharge Information Discharge Date/Time: 07/21/18 15:25
--- NOTE | 2018-07-21 15:36 | US ---
EXAM DATE: 07/21/2018 3:01 PM EST AGE/SEX: 58 years / Male INDICATIONS: Elevated bilirubin. CLINICAL DATA: This is the patient's initial encounter. Patient reports that signs and symptoms have been present for 1 day and indicates a pain score of 0/10. MEDICAL/SURGICAL HISTORY: Arthritis. Gastroesophageal reflux disease. Hypertension. ETOH abu se. Chronic bronchitis. None. COMPARISON: [facility], US PARACENTESIS ABD W/IMAGE, 07/17/2018. . MEASUREMENTS: Liver:__ 17.8 cm. Common Bile Duct:__ Nonvisualized. Right Kidney:__ 11.4 x 6.1 x 7.0 cm. FINDINGS: Liver: The liver is enlarged. Increased echogenicity without focal lesion or ductal dilatation. Portal Vein: Hepatopedal flow seen in portal vein. Common Duct: Not well visualized shadowing bowel gas. Gallbladder: The wall of the gallbladder is thickened. Some sludge is noted within the gallbladder rivera men. If there is clinical concern for cholecystitis, a hepatobiliary scan may be helpful to rule out cystic duct obstruction. Pancreas: Not well visualized. Right Kidney: Normal echogenicity and cortical thickness. No mass or hydronephrosis. Other: Small amount of ascites is noted. The spleen is mildly enlarged. CONCLUSION: 1. Gallbladder wall thickening and some sludge noted within the gallbladder lumen. If there is [place] concern for cholecystitis, a hepatobiliary scan may be helpful to rule out cystic duct obstructio n. 2. Enlarged fatty liver. 3. Some ascites. 4. Mild splenomegaly. 5. Poor visualization of pancreas and common bile duct due to shadowing bowel gas. If there is michelle rn for biliary obstruction, again, a hepatobiliary scan may be helpful in this patient. Electronically signed by: Sarwat Martinez MD Board Certified Radiologist 07/21/2018 3:34 PM EST
== END 2018-07-21 15:25 | disposition home or self-care (01) ==
LOC: PHED 09:11 → PHEDA 11:23 → PHICU 12:34 → PH3 07-19 12:35
PROVIDERS: ADMIT Hospitalist; ATTEND Hospitalist
DX: R10.9 Unspecified abdominal pain; M54.9 Dorsalgia, unspecified; R19.00 Intra-abdominal and pelvic swelling, mass and lump, unspecified site; K70.11 Alcoholic hepatitis with ascites; Z87.891 Personal history of nicotine dependence; R00.0 Tachycardia, unspecified; E87.2 Acidosis; K70.31 Alcoholic cirrhosis of liver with ascites; I10 Essential (primary) hypertension; Z88.0 Allergy status to penicillin; K21.9 Gastro-esophageal reflux disease without esophagitis; K83.1 Obstruction of bile duct; D69.59 Other secondary thrombocytopenia; F10.239 Alcohol dependence with withdrawal, unspecified

== ENCOUNTER 2018-08-07 07:08 | Inpatient (IN) ==
[2018-08-07 07:49] LABS: Baso # (Auto) 0.1 th/mm3 (0.0-0.2); Baso % (Auto) 0.6 % (0.0-2.0); Eos # (Auto) 0.2 th/mm3 (0.0-0.4); Eos % (Auto) 1.7 % (0.0-4.0); Hematocrit 45.2 % (39.0-51.0); Hemoglobin 14.4 gm/dL (13.0-17.0); Lymph # (Auto) 2.5 th/mm3 (1.0-4.8); Lymph % (Auto) 24.6 % (9.0-44.0); Mean Corpuscular HGB Conc 31.8 % (32.0-36.0); Mean Corpuscular Hemoglobin 30.1 pg (27.0-34.0); Mean Corpuscular Volume 94.7 fL (80.0-100.0); Mean Platelet Volume 10.1 fL (7.0-11.0); Mono # (Auto) 0.7 th/mm3 (0.0-0.9); Mono % (Auto) 7.3 % (0.0-8.0); Neut # (Auto) 6.6 th/mm3 (1.8-7.7); Neut % (Auto) 65.8 % (16.0-70.0); Platelet Count 111 th/mm3 (150-450); Red Blood Count 4.78 mil/mm3 (4.50-5.90); Red Cell Distribution Width 15.2 % (11.6-17.2); White Blood Count 10.1 th/mm3 (4.0-11.0)
[2018-08-07 07:54] LABS: Chloride 108 meq/L (98-107); Potassium 4.1 meq/L (3.5-5.1); Sodium 138 meq/L (136-145)
[2018-08-07 07:57] LABS: Calcium 8.2 mg/dL (8.5-10.1)
[2018-08-07 07:58] LABS: Activated Partial Thrombo Time 26.4 sec (23.4-31.7); Albumin 2.5 g/dL (3.4-5.0); Anion Gap 10 meq/L (5-15); Blood Urea Nitrogen 9 mg/dL (7-18); Carbon Dioxide 19.6 meq/L (21.0-32.0); Glucose,Random 117 mg/dL (74-106); INR 1.1 Ratio; Lipase 235 U/L (73-393); Prothrombin Time 11.3 sec (9.8-11.6)
[2018-08-07 08:00] LABS: Alanine Aminotransferase 108 U/L (12-78)
[2018-08-07 08:01] LABS: Aspartate Aminotransferase 231 U/L (15-37); Glomerular Filtration Rate Greater Than 89 mL/min (>89)
[2018-08-07 08:02] LABS: Total Protein 7.2 g/dL (6.4-8.2)
[2018-08-07 08:03] LABS: Alkaline Phosphatase 225 U/L (45-117)
--- NOTE | 2018-08-07 08:38 | ED ---
HPI General Chief Complaint: Abdominal Pain Stated Complaint: Abd Pain Time Seen by Provider: 08/07/18 07:23 History of Present Illness HPI narrative: This is a 58-year-old male with a history of alcoholic liver disease with cirrhosis, presents today with complaints of abdominal pain. Patient reports associated nausea and diarrhea. Patient also states he is going through withdrawal from alcohol. Patient is a heavy drinker. He states he last drank at 11 PM last night. He states he fears extremely anxious. Patient states he was admitted 3 weeks ago and had a paracentesis. Denies any blood in his stool. There are no other complaints at time of examination. Related Data Home Medications Medication Instructions Recorded Confirmed No Known Home Medications 07/16/18 08/07/18 Allergies Allergy/AdvReac Type Severity Reaction Status Date / Time penicillin G Allergy Severe ITCHING Verified 08/07/18 07:20 Review of Systems ROS: all other systems reviewed are negative Constitutional Denies chills and Denies fever(s) Eyes Reports system reviewed and no additional complaints, except as docu ENT Reports system reviewed and no additional complaints, except as docu Cardiovascular Denies chest pain, Denies diaphoresis and Reports dyspnea Respiratory Denies chest congestion, Denies cough and Reports dyspnea Gastrointestinal Reports abdominal pain, Denies melena, Reports bloating, Denies hematochezia, Reports diarrhea, Reports nausea and Denies vomiting Genitourinary Reports system reviewed and no additional complaints, except as docu and Denies flank pain Musculoskeletal Reports system reviewed and no additional complaints, except as docu Neurologic Denies confusion and Denies headache(s) Psychiatric Reports anxiety [facility] Medical History Medical History Cirrhosis of liver (Acute) Asthma (Acute) Back pain (Acute) Chronic bronchitis (Acute) GERD (gastroesophageal reflux disease) (Acute) HTN (hypertension) (Acute) Liver damage (Acute) Substance abuse (Acute) Surgical History Surgical History No history of previous surgery (Acute) Family History Family History Other Alcoholism Social History Social History Substance History: No History of Abuse Second Hand Smoke Exposure: No Smoking Status: Former smoker Tobacco Type: Cigarettes How Often Do You Have a Drink Containing Alcohol: 4 or more times a week Recent Travel in [facility] within the Last 8 Weeks: No Recent Out of Country Travel within the Last 8 Weeks: No Immunization History Tetanus Immunization: Unsure Exam Narrative Exam Narrative: GENERAL: Well-developed well-nourished male in acute distress. Patient is crying and stating he has severe abdominal pain. SKIN: Focused skin assessment warm/dry. HEAD: Atraumatic. Normocephalic. EYES: No scleral icterus. No injection or drainage. ENT: No nasal bleeding or discharge. Mucous membranes pink and moist. NECK: Trachea midline. Supple. CARDIOVASCULAR: Regular rate and rhythm. No murmur appreciated. RESPIRATORY: No accessory muscle use. Clear to auscultation. Breath sounds equal bilaterally. GASTROINTESTINAL: Abdomen soft, distended. Patient has caput medusa noted on his abdomen. There is a positive fluid wave. There is tense ascites. MUSCULOSKELETAL: No obvious deformities. No clubbing. No cyanosis. Bilateral pretibial edema. NEUROLOGICAL: Awake and alert and anxious. No obvious cranial nerve deficits. Motor grossly within normal limits. Normal speech. Course Initial Documented Vital Signs Temperature 98.4 F 08/07/18 07:09 Pulse Rate 110 H 08/07/18 07:09 Respiratory Rate 20 08/07/18 07:09 Blood Pressure 189/90 H 08/07/18 07:09 Pulse Oximetry 97 08/07/18 07:09 Last Documented Vital Signs Temperature 98.4 F 08/07/18 07:09 Pulse Rate 105 H 08/07/18 08:51 Respiratory Rate 18 08/07/18 10:12 Blood Pressure 139/86 08/07/18 08:51 Pulse Oximetry 96 08/07/18 08:51 Medical Decision Making [facility] Narrative Medical decision making narrative: 58-year-old male with a history of alcoholic liver disease, presents today with abdominal pain diarrhea nausea and anxiety. Patient states he feels as though he is going through alcohol withdrawal. The patient is been medicated with Ativan, 2 mg IV x1 dose. His LFTs are all elevated consistent with his liver disease. Coags are within normal limits. The patient will be admitted to the hospitalist service. He will need to be on CIWA protocol. He will likely need to have a paracentesis as well. Medical Screen Exam Complete: Yes Emergency Medical Condition: Yes Differential Diagnosis Differential Diagnosis: Tense ascites versus metabolic derangement versus withdrawal from alcohol Lab Data Result diagrams: 08/07/18 07:35 08/07/18 07:35 Lab Results 08/07/18 08/07/18 08/07/18 Range/Units 07:35 07:35 07:35 CBC w Diff Auto diff final WBC 10.1 (4.0-11.0) th/mm3 RBC 4.78 (4.50-5.90) mil/mm3 Hgb 14.4 (13.0-17.0) gm/dL Hct 45.2 (39.0-51.0) % MCV 94.7 (80.0-100.0) fL MCH 30.1 (27.0-34.0) pg MCHC 31.8 L (32.0-36.0) % RDW 15.2 (11.6-17.2) % Plt Count 111 L D (150-450) th/mm3 MPV 10.1 (7.0-11.0) fL Neut % (Auto) 65.8 (16.0-70.0) % Lymph % (Auto) 24.6 (9.0-44.0) % Dubois % (Auto) 7.3 (0.0-8.0) % Eos % (Auto) 1.7 (0.0-4.0) % Baso % (Auto) 0.6 (0.0-2.0) % Neut # (Auto) 6.6 (1.8-7.7) th/mm3 Lymph # (Auto) 2.5 (1.0-4.8) th/mm3 Dubois # (Auto) 0.7 (0.0-0.9) th/mm3 Eos # (Auto) 0.2 (0.0-0.4) th/mm3 Baso # (Auto) 0.1 (0.0-0.2) th/mm3 WBC Differential . Differential Comment . PT 11.3 (9.8-11.6) sec INR 1.1 Ratio APTT 26.4 (23.4-31.7) sec Sodium 138 (136-145) meq/L Potassium 4.1 (3.5-5.1) meq/L Chloride 108 H (98-107) meq/L Carbon Dioxide 19.6 L (21.0-32.0) meq/L Anion Gap 10 (5-15) meq/L BUN 9 (7-18) mg/dL Creatinine 0.64 (0.60-1.30) mg/dL Estimated GFR Greater than 89 (>89) mL/min Random Glucose 117 H (74-106) mg/dL Calcium 8.2 L (8.5-10.1) mg/dL Total Bilirubin 2.1 H (0.2-1.0) mg/dL AST 231 H (15-37) U/L ALT 108 H (12-78) U/L Alkaline Phosphatase 225 H (45-117) U/L Total Protein 7.2 (6.4-8.2) g/dL Albumin 2.5 L (3.4-5.0) g/dL Lipase 235 (73-393) U/L Discharge Plan Discharge Disposition Patient Disposition: ED Admit(ED Internal Use Only) Discharge Order Discharge Orders: ED Use Only Admit Order (Routine); Ordered 08/07/18 Ordered By: Leopoldo Shankar Discharge Details Diagnosis: Ascites, Abdominal pain, Liver cirrhosis, Alcohol withdrawal Physicians Team ED Provider: Leopoldo Shankar Primary Care Provider: Luis Ash Attending Provider: Tricia Larkin Discharge Interventions Interventions: Vital Signs Last Done: 08/07/18 08:51 ED Discharge Assessment Last Done: 08/07/18 10:32 Discharge Planning - Case Management Last Done: 08/07/18 09:26 Status ED Status: Admitted Patient
[2018-08-07] MEDS ORDERED: Haloperidol Inj 5 MG/ML Ampul IV.PUSH PRN (09:17)
[2018-08-07] MEDS ORDERED: Morphine Inj 4 MG/ML Vial IV.PUSH ONE (09:48)
--- NOTE | 2018-08-07 10:42 | P.HPIM ---
History of Present Illness Primary Care Physician: Luis Ash DO Chief Complaint: abdominal distention History of Present Illness: patient is a 58 y/o male, with history of alcohol abuse and Cirrhosis who presented to ER with abdominal distention. he had paracentesis last month but he says that his abdomen started to ' get bloated' again. he's comaplining of generalized abdominal pain with no nausea or vomiting or fever. he says that he hasn't stopped drinking and in fact his last drink was last night. Inpatient Certification Inpatient Certification: I certify that the inpatient services were ordered in accordance with Medicare regulations governing the order. This includes certification that hospital inpatient services are reasonable and necessary and in the case of services not specified as inpatient-only under 42 CFR 419.22(n), that they are appropriately provided as inpatient services in accordance to with the 2-midnight benchmark under 43 CFR 412.3(e) Estimated Total Length of Stay (Days): 2 Plans for Post Hospital Care: Home Review of Systems Review of Systems: all other systems reviewed are negative [facility] Medical History Medical History Cirrhosis of liver (Acute) Asthma (Acute) Back pain (Acute) Chronic bronchitis (Acute) GERD (gastroesophageal reflux disease) (Acute) HTN (hypertension) (Acute) Liver damage (Acute) Substance abuse (Acute) Surgical History Surgical History No history of previous surgery (Acute) Family History Family History Other Alcoholism Social History Social History Substance History: No History of Abuse Second Hand Smoke Exposure: No Smoking Status: Former smoker Tobacco Type: Cigarettes How Often Do You Have a Drink Containing Alcohol: 4 or more times a week Recent Travel in [facility] within the Last 8 Weeks: No Recent Out of Country Travel within the Last 8 Weeks: No Immunization History Tetanus Immunization: Unsure Medications and Allergies Allergies Allergy/AdvReac Type Severity Reaction Status Date / Time penicillin G Allergy Severe ITCHING Verified 08/07/18 07:20 Home Medications Medication Instructions Recorded Confirmed Type No Known Home Medications 07/16/18 08/07/18 History Active Medications: Active Medications Flumazenil (Romazicon Inj) 0.2 mg IV.PUSH Q1M PRN PRN Reason: OVERSEDATION Haloperidol Lactate (Haldol Inj) 1 mg IV.PUSH Q15M PRN PRN Reason: for severe agitation Lorazepam (Ativan Inj) 1 mg IV.PUSH Q4H PRN PRN Reason: for CIWA 8-10 Lorazepam (Ativan Inj) 2 mg IV.PUSH Q15M PRN PRN Reason: for CIWA > 20 Lorazepam (Ativan Inj) 2 mg IV.PUSH Q1H PRN PRN Reason: for CIWA 15-20 Lorazepam (Ativan Inj) 2 mg IV.PUSH Q2H PRN PRN Reason: for CIWA 11-14 Lorazepam (Ativan) 1 mg PO Q4H PRN PRN Reason: for CIWA 8-10 Lorazepam (Ativan) 2 mg PO Q2H PRN PRN Reason: for CIWA 11-14 Physical Exam Vital signs: Last Vital Signs Temp 98.4 F 08/07/18 07:09 Pulse 105 H 08/07/18 08:51 Resp 18 08/07/18 10:12 BP 139/86 08/07/18 08:51 Pulse Ox 96 08/07/18 08:51 Intake & Output 08/05/18 08/06/18 08/07/18 08/08/18 06:59 06:59 06:59 06:59 Weight 113.3 kg Constitutional no acute distress Routine HEENT Exam Eye: Present PERRL Routine Neck Exam Present supple Routine Respiratory Exam Present CTA bilaterally Routine Cardiovascular Exam Present RRR Routine Abdominal Exam Present soft, tenderness and distended Comments: mild generalized tenderness. Routine Extremities Exam Comments: no pedal edema. Routine Neurological Exam Present alert and oriented X3 Results Labs CBC & Chem 7: 08/07/18 07:35 08/07/18 07:35 Caprini VTE Risk Assessment Caprini VTE Risk Assessment: Moderate/High Risk (score >= 2) VTE Pharmacological Exception Reason: High risk for bleeding Caprini Risk Assessment Model: Point Value = 1 Point Value = 2 Point Value = 3 Point Value = 5 Age 41-60 Minor surgery BMI > 25 kg/m2 Swollen legs Varicose veins or History of unexplained or recurrent spontaneous Oral contraceptives or hormone replacement Sepsis (< 1 month) Serious lung disease, including pneumonia (< 1 month) Abnormal pulmonary function Acute myocardial infarction Congestive heart failure (< 1 month) History of inflammatory bowel disease Medical patient at bed rest Age 61-74 Arthroscopic surgery Major open surgery (> 45 min) Laparoscopic surgery (> 45 min) Malignancy Confined to bed (> 72 hours) Immobilizing plaster cast Central venous access Age >= 75 History of VTE Family history of VTE Factor V Leiden Prothrombin [id number] Lupus anticoagulant Anticardiolipin antibodies Elevated serum homocysteine Heparin-induced thrombocytopenia Other congenital or acquired thrombophilia Stroke (< 1 month) Elective arthroplasty Hip, pelvis, or leg fracture Acute spinal cord injury (< 1 month) Prophylaxis Regimen: Total Risk Factor Score Risk Level Prophylaxis Regimen 0-1 Low Early ambulation 2 Moderate Order ONE of the following: *Sequential Compression Device (SCD) *Heparin 5000 units SQ BID 3-4 Higher Order ONE of the following medications: *Heparin 5000 units SQ TID *Enoxaparin/Lovenox 40 mg SQ daily (WT < 150 kg, CrCl > 30 mL/min) *Enoxaparin/Lovenox 30 mg SQ daily (WT < 150 kg, CrCl > 10-29 mL/min) *Enoxaparin/Lovenox 30 mg SQ BID (WT < 150 kg, CrCl > 30 mL/min) AND/OR *Sequential Compression Device (SCD) 5 or more Highest Order ONE of the following medications: *Heparin 5000 units SQ TID (Preferred with Epidurals) *Enoxaparin/Lovenox 40 mg SQ daily (WT < 150 kg, CrCl > 30 mL/min) *Enoxaparin/Lovenox 30 mg SQ daily (WT < 150 kg, CrCl > 10-29 mL/min) *Enoxaparin/Lovenox 30 mg SQ BID (WT < 150 kg, CrCl > 30 mL/min) AND *Sequential Compression Device (SCD) Assessment and Plan Plan A/P - Ascites/ 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 -Alcohol abuse will start on CIWA protocol/ thiamine and multivitamin/ counselled on drinking cessation. -Thrombocytopenia- due to cirrhosis/ will monitor. -DVT prophylaxis with SCD's. Discussed Condition With: ER physician, the patient and RN. Discharge Planning: home within the next 24 hrs- if stable- pending paracentesis.
[2018-08-07] MEDS: Sodium Chloride 0.45 % Inj 1,000 ML IV.CONT SCH (12:19)
[2018-08-07 12:47] LABS: Bilirubin,Urine Moderate (Negative); Clarity,Urine Clear (Clear); Color,Urine Amber (Yellw/Straw); Glucose,Urine (UA) Negative (Negative); Leukocyte Esterase,Urine Negative (Negative); Nitrite,Urine Negative (Negative); PH,Urine 5.5 (5.0-8.5); Specific Gravity,Urine Greater/Equal 1.030 (1.002-1.035)
[2018-08-07 12:49] LABS: Ictotest,Urine Positive (Negative)
[2018-08-07 12:53] LABS: Calcium Oxalate Crystals,Urine Few /hpf
[2018-08-07] MEDS: LORazepam 1 MG Tablet PO PRN ×2 (15:16→20:14)
[2018-08-08] MEDS: Sodium Chloride 0.45 % Inj 1,000 ML IV.CONT SCH ×2 (03:28→16:49)
[2018-08-08] MEDS: LORazepam 1 MG Tablet PO PRN ×3 (03:32→20:00)
[2018-08-08 06:46] LABS: Chloride 105 meq/L (98-107); Potassium 3.5 meq/L (3.5-5.1); Sodium 140 meq/L (136-145)
[2018-08-08 06:50] LABS: Albumin 2.4 g/dL (3.4-5.0); Anion Gap 6 meq/L (5-15); Carbon Dioxide 28.6 meq/L (21.0-32.0); Glucose,Random 104 mg/dL (74-106); Hematocrit 38.7 % (39.0-51.0); Mean Corpuscular HGB Conc 33.5 % (32.0-36.0); Mean Corpuscular Hemoglobin 31.5 pg (27.0-34.0); Mean Corpuscular Volume 94.1 fL (80.0-100.0); Mean Platelet Volume 11.2 fL (7.0-11.0); Red Blood Count 4.11 mil/mm3 (4.50-5.90); Red Cell Distribution Width 14.8 % (11.6-17.2); White Blood Count 5.2 th/mm3 (4.0-11.0)
[2018-08-08 06:51] LABS: Blood Urea Nitrogen 11 mg/dL (7-18)
[2018-08-08 06:53] LABS: Alanine Aminotransferase 82 U/L (12-78)
[2018-08-08 06:54] LABS: Aspartate Aminotransferase 172 U/L (15-37); Glomerular Filtration Rate Greater Than 89 mL/min (>89)
[2018-08-08 06:55] LABS: Total Protein 6.5 g/dL (6.4-8.2)
[2018-08-08 06:56] LABS: Alkaline Phosphatase 206 U/L (45-117)
[2018-08-08 07:56] LABS: Platelet Count 50 th/mm3 (150-450)
--- NOTE | 2018-08-08 09:24 | P.PNIM ---
Subjective Interval history: f/u; ascites/ alcohol withdrawal in no acute distress. but somewhat anxious with hand tremors. has abdominal pain. awaiting paracentesis. Physical Exam Vital signs: Last Vital Signs Temp 96.4 F L 08/08/18 00:00 Pulse 95 H 08/08/18 00:00 Resp 18 08/08/18 00:00 BP 157/89 H 08/08/18 00:00 Pulse Ox 98 08/08/18 08:00 Intake & Output 08/06/18 08/07/18 08/08/18 08/09/18 06:59 06:59 06:59 06:59 Intake Total 1000 / 1000 Output Total 850 / 850 Balance 150 / 150 Weight 109.1 kg Constitutional no acute distress Comments: but looks anxious. Routine Respiratory Exam Present CTA bilaterally Routine Cardiovascular Exam Present RRR Routine Abdominal Exam Present soft and distended Routine Extremities Exam Comments: no pedal edema. Routine Neurological Exam Present alert and oriented X3 Results Labs CBC & Chem 7: 08/08/18 06:03 08/08/18 06:03 Assessment and Plan Plan A/P - Ascites/ 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 -Alcohol abuse on CIWA protocol/ thiamine and multivitamin/ counselled on drinking cessation. -Thrombocytopenia-chronic; due to cirrhosis/ will monitor. -DVT prophylaxis with SCD's. Discharge Planning: home within the next 24-48 hrs- if stable- pending paracentesis and clinical course. Progress Note: Quality VTE Deep Vein Thrombosis/Pulmonary Embolism Present on Admission: No
[2018-08-09] MEDS: LORazepam 1 MG Tablet PO PRN (05:37)
[2018-08-09] MEDS: Sodium Chloride 0.45 % Inj 1,000 ML IV.CONT SCH (07:25)
--- NOTE | 2018-08-09 10:23 | P.PNIM ---
Subjective Interval history: f/u; ascites/ alcohol withdrawal in no acute distress. looks and feels better today. abdominal pain is better and now feels more comfortable. not as anxious as yesterday. no new complaints. Physical Exam Vital signs: Vital Signs 08/08/18 12:00 08/08/18 16:00 08/08/18 20:00 Temperature 97.9 F 97.3 F L 96.9 F L Pulse Rate 91 H 87 91 H Respiratory Rate 22 21 18 Blood Pressure 148/83 H 144/84 H 151/80 H Pulse Oximetry 96 96 90 L 08/09/18 00:00 Temperature 98.4 F Pulse Rate 83 Respiratory Rate 18 Blood Pressure 136/83 Pulse Oximetry 94 L Intake & Output 08/08/18 08/09/18 08/09/18 18:59 06:59 18:59 Intake Total 920 / 920 0 / 0 1000 / 1000 Output Total 1200 / 1200 350 / 350 Balance -280 / -280 -350 / -350 1000 / 1000 Weight 106.4 kg Intake: IV 920 / 920 1000 / 1000 1/2 Normal Saline Inj 1,000 ML 920 / 920 1000 / 1000 @ 70 mls/hr IV.CONT .[id number] JOSE Rx#:[id number] Oral 0 / 0 0 / 0 Output: Urine 1200 / 1200 350 / 350 Constitutional no acute distress Routine Respiratory Exam Present CTA bilaterally Routine Cardiovascular Exam Present RRR Routine Abdominal Exam Present soft Comments: less distended. Routine Extremities Exam Comments: no pedal edema. Routine Neurological Exam Present alert and oriented X3 Results Labs CBC & Chem 7: 08/08/18 06:03 08/08/18 06:03 Procedures Procedures: paracentesis. Assessment and Plan Plan A/P - Ascites/ Cirrhosis due to alcoholic liver disease s/p paracentesis- will start on Lasix and Aldactone upon discharge. -Alcohol abuse/ withdrawal- improved. continue thiamine and multivitamin/ counselled on drinking cessation. -Thrombocytopenia-chronic; due to cirrhosis/ will monitor. -DVT prophylaxis with SCD's. Discharge Planning: dc home today. see med list. f/u; pcp. d/w the patient. Progress Note: Quality VTE Deep Vein Thrombosis/Pulmonary Embolism Present on Admission: No
--- NOTE | 2018-08-09 10:24 | P.DS ---
DS: Providers Date of admission: 08/07/18 08:50 Primary care physician: Luis Ash DO Brief History from admission: patient is a 58 y/o male, with history of alcohol abuse and Cirrhosis who presented to ER with abdominal distention. he had paracentesis last month but he says that his abdomen started to ' get bloated' again. he's comaplining of generalized abdominal pain with no nausea or vomiting or fever. he says that he hasn't stopped drinking and in fact his last drink was last night. DS: Summary - Ascites/ Cirrhosis due to alcoholic liver disease s/p paracentesis- will start on Lasix and Aldactone upon discharge. -Alcohol abuse/ withdrawal- improved. continue thiamine and multivitamin/ counselled on drinking cessation. -Thrombocytopenia-chronic; due to cirrhosis/ will monitor. -DVT prophylaxis with SCD's. Time Spent with Patient Total time spent providing and/or coordinating discharge services: Quality: VTE Deep Vein Thrombosis/Pulmonary Embolism Present on Admission: No Exam Narrative Exam Narrative: patient is in no acute distress. bilateral air entry present on lung exam. S1/S2 heard. abdomen is soft and less distented. no pedal edema. Results Procedures completed during hospitalization: paracentesis. Discharge Plan Discharge Disposition Patient Disposition: Discharge Home Discharge Condition Condition: Fair Discharge Order Discharge Orders: Discharge Order (Routine); Ordered 08/09/18 Ordered By: Tricia Larkin Physicians Team Primary Care Provider: Luis Ash Attending Provider: Tricia Larkin Rxs /Orders / Referrals /Forms Prescriptions: New thiamine HCl (vitamin B1) 100 mg Tablet 100 mg PO DAILY 30 Days Qty: 30 RF: 0 multivitamin with folic acid [Thera] 400 mcg Tablet 1 tab PO DAILY 30 Days Qty: 30 RF: 0 furosemide [Lasix] 40 mg tablet 40 mg PO DAILY Qty: 30 RF: 0 spironolactone [Aldactone] 25 mg tablet 25 mg PO DAILY Qty: 30 RF: 0 Continue Symbicort inhaler 1 dose OTHER BID RF: 0 Referrals: Luis Ash DO [Primary Care Provider] - See Instructions Discharge Instructions Patient Printed Instructions: Spironolactone (By mouth), Furosemide (By mouth) , Thiamine (By mouth), Multivitamins, Adult Formula (By mouth), Cirrhosis (DC) Status ED Status: Left Department Discharge Information Discharge Date/Time: 08/09/18 18:43
[2018-08-09 11:12] VITALS: RESP 20
[2018-08-09 19:28] VITALS: BP 154/85; PULSE 85; TEMP 96.9; O2SAT 94
--- NOTE | 2018-08-10 08:28 | US ---
EXAM DATE: 08/08/2018 3:01 PM EST AGE/SEX: 58 years / Male INDICATIONS: Ascites. CLINICAL DATA: This is the patient's subsequent encounter. Patient reports that signs and symptoms h ave been present for 1 month and indicates a pain score of 4/10. MEDICAL/SURGICAL HISTORY: . Arthritis. Gastroesophageal reflux disease. Hypertension. ETOH abus e. Chronic bronchitis. None. COMPARISON: No prior exams available for comparison. FLUID: Total volume of 2,000 cc of clear, yellow fluid was removed. Fluid was discarded. Paracentesis was th erapeutic only. TECHNIQUE: Ultrasound guidance for abdominal paracentesis. Paracentesis. The risks, benefits, and alternatives to ultrasound guided paracentesis were explained to the patient in detail including the risk of bleeding and infection. Written and verbal informed consent was obt ained. With the patient on the ultrasound table, ultrasound imaging was used to select the most appropriate approach for paracentesis. Overlying skin was prepped and draped in the usual sterile fashion and wi th a local anesthetic, a dermatotomy was made with an 11 blade scalpel. A 6 [employer] [id number] ca theter was introduced into the peritoneal cavity and fluid was collected. Post procedure scanning reveals no hematoma or other complication. The patient tolerated the procedu re well and left the ultrasound suite in stable condition. FINDINGS: Adequate fluid for paracentesis. CONCLUSION: 1. Uncomplicated paracentesis. Electronically signed by: Gamaliel Patel MD Board Certified Radiologist 08/10/2018 8:27 AM EST
== END 2018-08-09 18:43 | disposition home or self-care (01) | DRG 433 ==
LOC: PHED 07:08 → PHEDA 08:50 → PH3 10:07
PROVIDERS: ADMIT Internal Medicine; ATTEND Internal Medicine
CPT/HCPCS: 49083; 80053; 81001; 83690; 85025; 85027; 85610; 85730; 90774; 96374; 99285; C1729; C8952; J2060; J2270; J2405